=== PATIENT | female | born 1975 | race Caucasian/White ===

== ENCOUNTER 2017-06-30 16:30 | Inpatient (IN) | payer MEDICAID, SELFPAY ==
[2017-06-30 16:39] VITALS: BMI 29.0
[2017-06-30] MEDS: Betamethasone/Betamethasone 30 MG/5 ML Vial 12 MG IM (17:30)
[2017-06-30] MEDS: Lactated Ringers 1,000 ML 50 ML IV ×2 (18:15→22:08)
[2017-06-30] MEDS: Oxytocin 30 units/NS 500 ml 30 UNITS/500 ML IV.SOLN IV (18:30)
[2017-06-30 18:40] LABS: Hematocrit 35.1 % (37-47); Hemoglobin 11.9 g/dl (12.0-15.0); Mean Corp Hgb Conc 33.9 g/gl (32-36); Mean Corpuscular Hgb 31.5 pg (27.0-32.0); Mean Corpuscular Volume 92.9 fL (81-99); Mean Platelet Vol. 8.7 fl (6.2-12.0); Platelet Count 169 K/mm3 (150-450); RBC Distribution Width CV 13.7 % (11.6-14.6); RBC Distribution Width SD 45.1 fl (35.1-43.9); Red Blood Count 3.78 M/mm3 (4.2-5.4); White Blood Count 9.5 K/mm3 (4.4-11.0)
[2017-06-30 18:50] LABS: Scan Indicated on CBC? Y/N NO
[2017-06-30 18:55] LABS: Amphetamine Urine VISTA NEGATIVE (<1000 ng/mL); Barbiturate Urine VISTA NEGATIVE (< 200 ng/mL); Benzodiazepine Urine VISTA NEGATIVE (< 200 ng/mL); Cocaine Urine VISTA NEGATIVE (< 300 ng/mL); Ecstacy Urine VISTA NEGATIVE (< 500 ng/mL); Methadone Urine VISTA NEGATIVE (< 300 ng/mL); PCP Urine VISTA NEGATIVE (< 25 ng/mL); THC Urine VISTA POSITIVE (< 50 ng/mL); Vista UDS pH Range 6
[2017-06-30 18:56] LABS: Group B Strep DNA By PCR Negative (Negative); Internal Control PASS; Probe Check PASS; Specimen Processing Control PASS
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
--- NOTE | 2017-06-30 23:02 | PCM.PN.BLA ---
Progress Note S: Report received from Maggie Roland MD about this patient. At sign-off patient was noted to be 4-5cm/90%/-2 with a Category II tracing categorized by minimal to moderate variability and occasional moderate variable decels. Rare prolonged decelerations have also bee noted through the course of her labor. Due to patient's HepC positive status, FSE placement contraindicated. Patient has recently received epidural and is comfortable following its placement. O: VSS, Afebrile FHT baseline 125, minimal to moderate variability, few accels, frequent early decels and prolonged decel with chanel to 70x x 4 minutes with spontaneous recovery with position change, 10 L O2 by facemask and IV LR fluid bolus Ctx q 2-5 minutes, palpate moderately strong SVE = 6/90/-2 by this provider's exam A: 41 y/o @ 36+ weeks IOL for known Trisomy 21 for non-reactive NST (BPP 6/10) P: 1) Dr. Chavez OB back-up notified of patient status and heart rate tracing, will continue to monitor at this time expectantly since there is spontaneous recovery of decels 2) Expectant management 3) Anticipate Mallory Ruiz CNM
[2017-06-30] MEDS: 0.9% Saline Lock 10 ML Syringe IV ×2 (23:14→23:15)
--- NOTE | 2017-07-01 | PLAC_PTH ---
PATIENT: TATA NEVAREZ LOC: [facility] U#:[id number] AGE/SX: 41/F ROOM: WP014 RE06/30/[address]: Dr. Alexandra Brandt, MDDOB: 1975 BED: 1 DIS: 07/02/2017 SPEC #: [id number] RECD: 07/01/17 14:49 STATUS: VARUN EVE #: [id number] JHOANA: 07/01/17 00:[address]: Alexandra Brandt DEPT: SURGICAL PATHOLOGY RECD BY: Jared Varela ENTERED: 07/03/17 09:21 SP TYPE: PLACENTA OTHR DR: Dr. Griselda Valdes MD Tissues: Placenta, NOS Procedures: Surgery Specimen Level V HEADER OPERATION: Vaginal delivery PRE-OP DIAGNOSIS: Known trisomy 21 baby, short cord TISSUE SUBMITTED: Placenta MICROSCOPIC DIAGNOSIS Gonzalez placenta (445 gm): Short umbilical cord ? trivascular with no inflammation. Placental membranes ? focal pigmented macrophages. Placental disc ? hypovascular villi and mildly increased intraparenchymal fibrin plaques. AM:jose 07/05/17 COMMENT Portions of the placenta are submitted for cytogenetic studies. MICROSCOPIC DESCRIPTION Slides are reviewed. GROSS DESCRIPTION SPECIMEN: PLACENTA / CLINICAL INFORMATION: A. Weight: 2.699 kg B. Gestational Age: 36 weeks C. Sex: Female PLACENTAL WEIGHT (POST FIXATION): 445 gm PLACENTAL DIMENSIONS: 18 x 17 x 3 cm PLACENTAL SHAPE: Usual ovoid PLACENTAL WEIGHT FOR GESTATIONAL AGE: Within 10-99th percentile MEMBRANES - Present A. Insertion: Marginal B. Site of rupture from edge: 2 cm from edge of placental disc C. Color of membrane: Muñoz-santos D. Abnormalities: None UMBILICAL CORD - Present A. Color: Muñoz-santos B. Insertion: Eccentric C. Length: 22 cm D. Diameter: 1 cm E. Number of vessels: Three F. Abnormalities: None PLACENTAL DISC - Present A. Color of surface: Muñoz-santos B. surface abnormalities: None C. Maternal cotyledons: Intact with minimal tears D. Attached retro placental clot: No clot E. Cut surface: Dark red and spongy F. Lesions: None G. Separate clot: Absent SECTIONS SUBMITTED: 1. Membrane roll and umbilical cord ( end notched) 2. Placental disc, and maternal surfaces 3. Placental disc, and maternal surfaces 4. Placental disc, and maternal surfaces AM:jose 07/04/17 TC:5 CPT: 83747
[2017-07-01] MEDS: Lactated Ringers 1,000 ML 50 ML IV (00:21)
[2017-07-01] MEDS: Ondansetron 4 MG/2 ML Vial IV (00:38)
[2017-07-01] MEDS: Oxytocin 30 units/NS 500 ml 30 UNITS/500 ML IV.SOLN 334 UNITS IV (01:25)
--- NOTE | 2017-07-01 01:48 | PCM.OB.VAG ---
Vaginal Delivery Maternal Presentation: Medically Indicated Induction Method of Induction: Pitocin - Pitocin discontinued during labor though for repetative prolonged decels, Amniotomy Medical Reason for Induction: Gestational Hypertension, - - Non-reassuring NST, BPP = 6/10. Known Trisomy 21 baby. Amniotic Membrane Rupture Type: Artificial Amniotic Fluid Description: Clear, Lightly stained meconium Final UZIEL: 07/27/17 Final UZIEL Source: US <20 weeks Gestational age: 36 Weeks and 2 Days [place] doctor who attended delivery (if requested by OB): Giselle Ortiz Date of Procedure: 07/01/17 Pre-Operative Diagnosis: IOL @ 36.1 wks for Non-reactive NST, Category II FHT, BPP = 6/10, Known T21 Post-Operative Diagnosis: @ 36.2 wks Surgery/ Procedure Performed: Spontaneous Vaginal Delivery Anesthesiologist: Rama Dye Type of Anesthesia: Epidural Description of Procedure: Patient found to be C/C/+1 station with urge to push. Due to Category II FHT during much of labor and known Trisomy 21 baby, Owner Professional Engineer television news reporter and SCN nurse present at delivery. Patient pushed well with urge, decels to 80s noted during the pushing phase. Patient pushed easily to crown and then delivered viable girl baby over intact perineum at 0118. Infant with spontaneous cry and respirations, Apgars 8 and 9. Mouth and nose bulb suctioned and infant dried and stimulated. Umbilical clamped and cut by one of patient's support people, then placenta delivered spontaneously via Lujan mechanism after 3rd stage pitocin per protocol was started. Placenta intact with 3VC; cord short. Due to known Trisomy and short cord, placenta sent to pathology for evaluation. EBL = 150cc. Upon inspection of vaginal vault, no lacerations noted. No repair indicated. Sponge count correct. Vagina sweep negative. Poxh-gh-kiub initiated. Bonding initiated. Mallory Ruiz CNM Presentation: Vertex, YASSINE Placental Delivery Description: Spontaneous Placenta Disposition: Routine to Lab Cord Vessel Description: 3 Vessels Cord Entanglement: None Drain: Du to straight drain Estimated Blood Loss: 150 Infant A gender: Female (1 minute): 8 (5 minute): 9 Episiotomy Description: None Laceration: None Medications given after delivery: IV Pitocin Complications: None
[2017-07-01] MEDS: Oxytocin 30 units/NS 500 ml 30 UNITS/500 ML IV.SOLN 167 UNITS IV (02:05)
[2017-07-01] MEDS: 0.9% Saline Lock 10 ML Syringe IV (03:04)
[2017-07-01] MEDS: Ibuprofen 600 MG Tablet PO ×3 (03:16→16:03)
[2017-07-01 04:12] VITALS: BP 110/57; PULSE 73; RESP 18; TEMP 37
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
--- NOTE | 2017-07-01 07:26 | PCM.PN.BLA ---
Progress Note Present at bedside talking with patient. After reviewing patient's records, positive tox screen for cannabinoids noted. Patient admits to use of marijuana a week ago. Discussed with patient risk of while using marijuana. Discussed that in contraindicated if patient is using marijuana due to risk of brain development. Patient spoke with [facility] social media content manager yesterday re: housing concerns. Patient is in need of stable housing upon getting discharge from hospital. [facility] Social Work note printed out for [facility] nursing and social work staff. Patient bonding well with patient and is pumping colostrum at this time. Mallory Ruiz CNM
--- NOTE | 2017-07-01 07:32 | PN_ITS ---
Progress Note Present at bedside talking with patient. After reviewing patient's records, positive tox screen for cannabinoids noted. Patient admits to use of marijuana a week ago. Discussed with patient risk of while using marijuana. Discussed that in contraindicated if patient is using marijuana due to risk of brain development. Patient spoke with [facility] social services aide yesterday re: housing concerns. Patient is in need of stable housing upon getting discharge from hospital. [facility] Social Work note printed out for [facility] nursing and social work staff. Patient bonding well with patient and is pumping colostrum at this time. Mallory Ruiz CNM
[2017-07-01 08:00] VITALS: BP 109/65; PULSE 66; RESP 18; TEMP 36.6; O2SAT 96
[2017-07-01 12:00] VITALS: BP 126/70; PULSE 72; RESP 16; TEMP 36.4; O2SAT 98
[2017-07-01 16:00] VITALS: BP 133/84; PULSE 63; RESP 18; TEMP 37; O2SAT 99
[2017-07-01 19:35] VITALS: BP 127/65; PULSE 60; RESP 16; TEMP 36.5; O2SAT 98
[2017-07-02] VITALS: BP 133/76; PULSE 86; RESP 18; TEMP 36.6; O2SAT 99
[2017-07-02 02:45] VITALS: BP 128/78; PULSE 78; RESP 18; TEMP 36.6
[2017-07-02 03:34] LABS: Hematocrit 35.8 % (37-47); Mean Corp Hgb Conc 33.5 g/gl (32-36); Mean Corpuscular Hgb 31.7 pg (27.0-32.0); Mean Corpuscular Volume 94.5 fL (81-99); Mean Platelet Vol. 8.8 fl (6.2-12.0); Platelet Count 157 K/mm3 (150-450); RBC Distribution Width CV 13.9 % (11.6-14.6); RBC Distribution Width SD 47.3 fl (35.1-43.9); Red Blood Count 3.79 M/mm3 (4.2-5.4)
[2017-07-02 03:35] LABS: Scan Indicated on CBC? Y/N NO
[2017-07-02] MEDS: Ibuprofen 600 MG Tablet PO (05:54)
--- NOTE | 2017-07-02 06:59 | DCINST_ITS ---
Discharge Diet: No Restrictions Discharge Activity: Return to Normal Activity, May not drive while taking narcotic pain medications., May Shower May resume sexual activity in: 4-6 weeks Additional Activity Instructions:: Nothing in the vagina for 4-6 weeks. You may return to work/school in 6 weeks. Call your doctor if your incision/area has: Continuous Slow Oozing, Sudden Increased Bleeding, Increased Pain/ Swelling, Increased Redness, Foul Smelling Discharge Call your doctor if you observe: Fever of 101 or Higher, Inability to urinate, Inability to have a bowel movement, Using more than one pad per hour, Uncontrolled pain Additional Instructions: If you experience any of the following, contact your healthcare provider. * Bleeding that soaks a pad every hour for 2 hours * Fever 100.4 or higher * Unrelieved incision or abdominal pain * Swelling, redness, discharge or bleeding from your incision or episiotomy site * Your incision begins to separate * Problems urinating (including inability to urinate or burning while urinating) . * Visual changes * Severe headache * Flu-like symptoms * Pain or redness in one of both of your breasts * Pain, warmth, tenderness or swelling in your legs, especially the calf area * Frequent nausea and vomiting * Symptoms of depression or anxiety If you experience any of the following, call 911 or go to the nearest Emergency Room. * Chest pain * Problems breathing * Seizure activity * Partial or complete paralysis of a body part, slurred speech, weakness or drooping of the face, or a sudden inability to walk or hold your balance Allergies/Adverse Reactions: Allergies No Known Allergies Allergy (Verified 06/30/17 17:36) Medications to take at Discharge Pnv95/Ferrous Fumarate/FA [ Formula] 1 each PO DAILY 01/09/17 Orders to be completed after discharge: Electric breast pump Location: None Selected When: Call to make an appointment with your doctor in 6 weeks. If you had elevated Blood Pressure or 4th degree laceration you will need to be seen in 2 weeks. Primary Care Physician: Griselda Valdes MD [Primary Care Provider] -
--- NOTE | 2017-07-02 07:01 | PCM.PN.BLA ---
Progress Note S: Page received from nursing staff overnight. [place] is being transferred to [facility] for evaluation of cardiac murmur following failed NICHD heart screening. Patient has not been seen yet by social work here in hospital, discussed with nursing staff and this consult can be done at [place]. Patient desires discharge to home NESTOR so she can be with her baby. Patient denies any symptoms or concerns. Reports that she is having no issues with urination or ambulation. O: VSS, Afebrile Nipples with few ecchymotic olinda, a few fine small cracks noted. No active bleeding noted. Abdomen NT x 4 quadrants, FF midline @ 2FB below umbilicus No edema in LE, negative calf tenderness to palpation Scant rubra lochia, intact perineum A: 41 y/o G10, now P8; PPD #1 following of Down Syndrome Child, Hx of Substance Use Disorder, Normal Course P: 1) Discharge patient to home 2) Breastpump order and APNO prescription written so patient can continue /pump breastmilk 3) RTC at [facility] office at 4-5 weeks PP for pre-op visit for tubal ligation. 4) Anticipate social work consult will be done at [facility] Mallory Ruiz CNM
--- NOTE | 2017-07-02 07:21 | PN_ITS ---
Progress Note S: Page received from nursing staff overnight. [place] is being transferred to [facility] for evaluation of cardiac murmur following failed NICHD heart screening. Patient has not been seen yet by social work here in hospital, discussed with nursing staff and this consult can be done at [place]. Patient desires discharge to home NESTOR so she can be with her baby. Patient denies any symptoms or concerns. Reports that she is having no issues with urination or ambulation. O: VSS, Afebrile Nipples with few ecchymotic olinda, a few fine small cracks noted. No active bleeding noted. Abdomen NT x 4 quadrants, FF midline @ 2FB below umbilicus No edema in LE, negative calf tenderness to palpation Scant rubra lochia, intact perineum A: 41 y/o G10, now P8; PPD #1 following of Down Syndrome Child, Hx of Substance Use Disorder, Normal Course P: 1) Discharge patient to home 2) Breastpump order and APNO prescription written so patient can continue /pump breastmilk 3) RTC at [facility] office at 4-5 weeks PP for pre-op visit for tubal ligation. 4) Anticipate social work consult will be done at [facility] Mallory Ruiz CNM
[2017-07-02 08:00] VITALS: BP 141/83; PULSE 56; RESP 18; TEMP 36.9; O2SAT 99
[2017-07-06 12:21] LABS: Pathology Specimen OB SEE PATHOLOGY REPORT
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
== END 2017-07-02 08:40 | disposition home or self-care (01) | DRG 372 ==
PROVIDERS: Advanced Practice Midwife; Obstetrics & Gynecology; Admitting Provider Obstetrics & Gynecology; Family Provider Internal Medicine; PCP Internal Medicine; Visit Provider Obstetrics & Gynecology
DX: O40.3XX0 Polyhydramnios, third trimester, not applicable or unspecified (principal); O13.4 Gestational [pregnancy-induced] hypertension without significant proteinuria, complicating childbirth; O60.14X0 Preterm labor third trimester with preterm delivery third trimester, not applicable or unspecified; B19.20 Unspecified viral hepatitis C without hepatic coma; O99.324 Drug use complicating childbirth; O98.42 Viral hepatitis complicating childbirth; F12.90 Cannabis use, unspecified, uncomplicated; O76 Abnormality in fetal heart rate and rhythm complicating labor and delivery; O69.3XX0 Labor and delivery complicated by short cord, not applicable or unspecified; O99.334 Smoking (tobacco) complicating childbirth; Z3A.36 36 weeks gestation of pregnancy; Z37.0 Single live birth; O09.523 Supervision of elderly multigravida, third trimester; O92.13 Cracked nipple associated with lactation
CPT/HCPCS: 59025; 59050; 80307; 85027; 86850; 86900; 87081; 87653; 88307; 99218; J7120; A4216; G0378; J0702; J2405

== ENCOUNTER 2018-05-06 12:21 | Emergency (ER) | payer MEDICAID, SELFPAY ==
[2018-05-06 12:23] VITALS: BP 164/114; PULSE 74; PULSE 78; RESP 16; TEMP 36.6; O2SAT 96; BMI 24.2
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
[2018-05-06] MEDS: Diphth,Pertuss(Acell),Tet Vac 0.5 ML Vial IM (13:15)
[2018-05-06] MEDS: Ibuprofen 600 MG Tablet PO (13:16)
--- OUTSIDE RECORDS SUMMARY | 2018-08-08 13:27 | XMS RPT_ITS ---
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 treatment for hepatitis C now that has had her daughter. Postponed seeking treatment after became . PAST MEDICAL HISTORY Diagnosis Date - Allergic rhinitis, cause unspecified 12/15/2005 - Diarrhea - Generalized anxiety disorder Anxiety, Generalized - H/O miscarriage, currently 4 Miscarriages - Hemorrhage of gastrointestinal tract, unspecified - Hemorrhage of rectum and anus - Hepatitis C - Hepatitis C virus infection 10/16/2015 - History of gestational hypertension 01/02/2017 - History of maternal fourth degree perineal laceration, currently 01/02/2017 - Migraine, unspecified, with intractable migraine, so stated, without mention of status migrainosus Migraine - Nondependent alcohol abuse lives at [facility] - Other, mixed, or unspecified nondependent drug abuse lives at [facility] - PMH - PAST MEDICAL HISTORY OF heart mumur - Ulcerative (chronic) proctitis (HCC) Current Outpatient Prescriptions: fexofenadine (ELY) 180 mg tablet TAKE 1 TABLET BY MOUTH EVERY DAY BISMUTH SUBSALICYLATE (PEPTO-BISMOL ORAL) Take by mouth. Loperamide HCl (IMODIUM) 2 mg tab Take 1 tablet by mouth as needed. No current facility-administered medications for this visit. OBJECTIVE: BP 118/80 (BP Site: Right Arm, BP Position: Sitting, BP Cuff Size: Regular Adult) Pulse 68 Resp 12 Wt 71.7 kg (158 lb) BMI 25.50 kg/m? Patient is alert, oriented times 3, no apparent distress, affect is bright, reactive. Skin: nonicteric. Heart: Regular rate, rhythm, no murmurs, gallops, rubs. Lungs: Clear to auscultation, bilaterally, breathing non labored. Ext: No cyanosis, clubbing, or edema. Component Latest Ref Rng AND Units 01/09/2017 HCV RNA by PCR IU/mL 1,468,422 (A) ASSESSMENT AND PLAN: Encounter Diagnosis ICD-10-CM 1. Attention deficit hyperactivity disorder (ADHD), combined type F90.2 dextroamphetamine-amphetamine (ADDERALL) 5 mg tablet 2. Chronic hepatitis C without hepatic coma (HCC) B18.2 HCG QUAL BLD TOX SCREEN ROUT UR PROTHROMBIN TIME/PT HEPATITIS C GENOTYPE HEPATIC FUNCTION PNL GFR ESTIMATED CBC HCV QUANT RNA BY PCR Above issues addressed with patient. Patient involved in shared decision making for management of medical issues. History and medications reviewed. Epic updated as needed Refills taken care of and meds adjusted as indicated after reviewed history, exam and labs. Health Maintenance reviewed. Updated record and/or ordered tests as recorded. Encouraged on efforts at healthy diet and regular exercise and adequate sleep. Asked GI/Liseth Minor about possibility of managing here in [place]. Can get labs as recommended above then decide about treatment options. Will see if ADHD med approved by insurance and if helps with ADHD and anxiety. Adjust dose as indicated. Further evaluation and treatment as indicated. Emotional support given. Overall handling stressors well with having special needs daughter. The majority of the visit was spent counseling and/or coordinating care for the patient. Xlki-ie-ntue time was at least 25 minutes. Franco Valdes MD CNOV Observed: 02/14/2018 Status: COMPLETED Source: [place] 4:00 PM [facility] REPOSITORY Office Visit (INTMWS) TATA NEVAREZ ([id number]) 1975 F Date Time Provider Department 02/14/18 4:00 PM FRANCO VALDES INTMWS During your visit today, we recorded the following information about you: Pulse Respiration Blood pressure Weight 68/minute 12/minute 118/80 71.7 kg Franco Valdes MD 02/20/2018 5:24 PM Signed Patient presents with: discuss medical marijuana and hep c SUBJECTIVE: Tata Nevarez is a 42 year old year old lady here today for follow up appointment for review of medical conditions. Baby with Down's syndrome--daughter doing well. Issues with anxiety and panic attacks. Was treated for ADHD in the past. Less anxious when was being treated for ADHD. Would be willing to try treating ADHD again and see if that helped. Wants to seek treatment for hepatitis C now that has had her daughter. Postponed seeking treatment after became . PAST MEDICAL HISTORY Diagnosis Date - Allergic rhinitis, cause unspecified 12/15/2005 - Diarrhea - Generalized anxiety disorder Anxiety, Generalized - H/O miscarriage, currently 4 Miscarriages - Hemorrhage of gastrointestinal tract, unspecified - Hemorrhage of rectum and anus - Hepatitis C - Hepatitis C virus infection 10/16/2015 - History of gestational hypertension 01/02/2017 - History of maternal fourth degree perineal laceration, currently 01/02/2017 - Migraine, unspecified, with intractable migraine, so stated, without mention of status migrainosus Migraine - Nondependent alcohol abuse lives at [facility] - Other, mixed, or unspecified nondependent drug abuse lives at [facility] - PMH - PAST MEDICAL HISTORY OF heart mumur - Ulcerative (chronic) proctitis (HCC) Current Outpatient Prescriptions: fexofenadine (ELY) 180 mg tablet TAKE 1 TABLET BY MOUTH EVERY DAY BISMUTH SUBSALICYLATE (PEPTO-BISMOL ORAL) Take by mouth. Loperamide HCl (IMODIUM) 2 mg tab Take 1 tablet by mouth as needed. No current facility-administered medications for this visit. OBJECTIVE: BP 118/80 (BP Site: Right Arm, BP Position: Sitting, BP Cuff Size: Regular Adult) Pulse 68 Resp 12 Wt 71.7 kg (158 lb) BMI 25.50 kg/m? Patient is alert, oriented times 3, no apparent distress, affect is bright, reactive. Skin: nonicteric. Heart: Regular rate, rhythm, no murmurs, gallops, rubs. Lungs: Clear to auscultation, bilaterally, breathing non labored. Ext: No cyanosis, clubbing, or edema. Component Latest Ref Rng AND Units 01/09/2017 HCV RNA by PCR IU/mL 1,468,422 (A) ASSESSMENT AND PLAN: Encounter Diagnosis ICD-10-CM 1. Attention deficit hyperactivity disorder (ADHD), combined type F90.2 dextroamphetamine-amphetamine (ADDERALL) 5 mg tablet 2. Chronic hepatitis C without hepatic coma (HCC) B18.2 HCG QUAL BLD TOX SCREEN ROUT UR PROTHROMBIN TIME/PT HEPATITIS C GENOTYPE HEPATIC FUNCTION PNL GFR ESTIMATED CBC HCV QUANT RNA BY PCR Above issues addressed with patient. Patient involved in shared decision making for management of medical issues. History and medications reviewed. Epic updated as needed Refills taken care of and meds adjusted as indicated after reviewed history, exam and labs. Health Maintenance reviewed. Updated record and/or ordered tests as recorded. Encouraged on efforts at healthy diet and regular exercise and adequate sleep. Asked GI/Liseth Minor about possibility of managing here in [place]. Can get labs as recommended above then decide about treatment options. Will see if ADHD med approved by insurance and if helps with ADHD and anxiety. Adjust dose as indicated. Further evaluation and treatment as indicated. Emotional support given. Overall handling stressors well with having special needs daughter. The majority of the visit was spent counseling and/or coordinating care for the patient. Tdpm-hs-kugo time was at least 25 minutes. Franco Valdes MD Referring Provider: SELF [[id number]] Allergies As of Date: 02/14/2018 Noted Allergy Reaction ZOLOFT (SERTRALINE) 02/14/2018 1 - Mental Status Change Comments: felt high like on cocaine; could not tolerate Date Reviewed: 02/14/2018 Reviewed by: Blas Webber - Fully Assessed Reason for Visit: discuss medical marijuana and hep c [Other] Primary Visit Diagnosis:Attention deficit hyperactivity disorder (ADHD), combined type [F90.2] Other Visit Diagnosis:Chronic hepatitis C without hepatic coma (HCC) [B18.2] Order(s):dextroamphetamine-amphetamine (ADDERALL) 5 mg tabletTake 1 tablet by mouth twice daily for 30 days.Disp: 60 tabletRfl: 0 HCG QUAL BLD [SQHCG] Order #: [id number] FUTURE TOX SCREEN ROUT UR [SQUTOX2] Order #: [id number] FUTURE PROTHROMBIN TIME/PT [SQPT] Order #: [id number] FUTURE HEPATITIS C GENOTYPE [SQHEPGEN] Order #: [id number] FUTURE HEPATIC FUNCTION PNL [SQHFP] Order #: [id number] FUTURE GFR ESTIMATED [SQGFR1] Order #: [id number] FUTURE CBC [SQCBC] Order #: [id number] FUTURE HCV QUANT RNA BY PCR [SQHCQPCR] Order #: [id number] FUTURE Prescriptions as of 02/14/2018 Sig: FEXOFENADINE 180 MG TABLET TAKE 1 TABLET BY MOUTH EVERY * PEPTO-BISMOL ORAL Take by mouth. LOPERAMIDE 2 MG TABLET Take 1 tablet by mouth as nee* DEXTROAMPHETAMINE-AMPHETAMINE* Take 1 tablet by mouth twice * Medication notes this encounter HYDROXYZINE PAMOATE 50 MG CAPSULE >> Blas Webber 02/14/2018 4:19 PM >> BLAS WEBBER MonFeb 14, 2018 4:19 PM Not taking FAMOTIDINE 10 MG TABLET >> Blas Webber 02/14/2018 4:19 PM >> BLAS WEBBER MonFeb 14, 2018 4:19 PM Not taking Problem List As Of Date 02/14/2018 Noted Resolved Opioid abuse, in remission [F11.11] INVALID FOR*08/11/2017 More... Rash and other nonspecific skin eruption [R21] INVALID FOR*01/02/2017 More... 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] INVALID FOR* Ulcerative (chronic) proctitis (HCC) [K51.20] INVALID FOR*01/02/2017 Hemorrhage of gastrointestinal tract, unspecifi*INVALID FOR*01/02/2017 DIARRHEA NOS [R19.7] INVALID FOR* Hypertrophy of breast [N62] INVALID FOR*01/02/2017 Hepatitis C virus infection [B19.20] INVALID FOR*08/11/2017 Drug addiction (HCC) [F19.20] INVALID FOR*01/02/2017 Elderly multigravida in first trimester [O09.52*INVALID FOR* History of maternal fourth degree perineal lace*INVALID FOR*08/11/2017 History of gestational hypertension [Z87.59] INVALID FOR*08/11/2017 Down syndrome of fetus in current [O3*INVALID FOR*08/11/2017 More... Chronic hepatitis C affecting , antepa*INVALID FOR* BV (bacterial vaginosis) [N76.0, B96.89] INVALID FOR*08/11/2017 More... Polyhydramnios in third trimester [O40.3XX0] INVALID FOR*08/11/2017 More... Encounter for sterilization [Z30.2] INVALID FOR* More... Attention deficit hyperactivity disorder (ADHD)*INVALID FOR* Prescriptions ordered this encounter Disp Refills Start End DEXTROAMPHETAMINE-AMPHETAMINE 5 MG T* 60 t* 0 02/14/2018 03/16/2018 Class: Print RX Route: ORAL Sig: Take 1 tablet by mouth twice daily for 30 days. Medications Discontinued During This Encounter cephALEXin (KEFLEX) 500 mg capsule 28 c* 0 08/11/2017 02/14/2018 Route: ORAL Sig: Take 1 capsule by mouth four times daily. Disc: Course of therapy completed famotidine (PEPCID) 10 mg tablet 30 t* 2 01/02/2017 02/14/2018 Route: ORAL Sig: Take 1 tablet by mouth twice daily. Disc: Reason for discontinue is not on file. ondansetron (ZOFRAN) 4 mg tablet 112 * 1 01/02/2017 02/14/2018 Route: ORAL Sig: Take 1 tablet by mouth every 8 hours as needed for Nausea/Vomiting. Disc: Reason for discontinue is not on file. promethazine (PHENERGAN) 25 mg tablet 40 t* 0 01/09/2017 02/14/2018 Cmt: Med-syn patient. If too soon, we will put new RX on hold for next cycle. Sig: TAKE 1 TABLET EVERY 6 HOURS NEEDED for nausea/vomiting Disc: Reason for discontinue is not on file. hydrOXYzine pamoate (VISTARIL) 50 mg* 30 c* 1 04/26/2017 02/14/2018 Route: ORAL Sig: Take 1 capsule by mouth at bedtime as needed for Anxiety. Disc: Reason for discontinue is not on file. metroNIDAZOLE (METROGEL) 0.75 % Vagi* 1 Tu* 0 06/01/2017 02/14/2018 Route: VAGINAL Sig: Use 1 Applicatorful vaginally once each week. Disc: Reason for discontinue is not on file. phenazopyridine (PYRIDIUM, GERIDIUM)* 6 ta* 0 08/11/2017 02/14/2018 Route: ORAL Sig: Take 1 tablet by mouth three times daily as needed. Disc: Reason for discontinue is not on file. Lwywlhhu-Lp-Zbm-Fe-FA (PREN* 02/14/2018 Class: Historical Med Route: ORAL Sig: Take 1 tablet by mouth once daily. Disc: Reason for discontinue is not on file. clotrimazole-betamethasone (LOTRISON* 15 g 0 09/21/2017 02/14/2018 Route: TOPICAL Sig: Apply 1 application to affected area twice daily. Disc: Reason for discontinue is not on file. Disposition: Return for 3 to 4 weeks follow up. Follow-up and Disposition History Recorded Encounter Status:Closed by FRANCO VALDES MD on 02/20/18 CNOV Observed: 10/10/2017 Status: COMPLETED Source: [place] 3:00 PM [facility] REPOSITORY Office Visit (INTMWS) TATA NEVAREZ ([id number]) 1975 F Date Time Provider Department 10/10/17 3:00 PM ARLENE CLAY (POSTULANT) INTMWS During your visit today, we recorded the following information about you: Pulse Respiration Blood pressure Weight 60/minute 16/minute 110/64 71.2 kg Arlene Clay APRN.CNS 10/10/2017 3:35 PM Signed OUTPATIENT VISIT DATE October 10, 2017 OUTPATIENT VISIT TYPE ESTABLISHED PRIMARY CARE PHYSICIAN: Franco Valdes MD CHIEF COMPLAINT: Patient presents with: Hepatitis History of Present Illness: Tata Nevarez is a 41 year old female who was last seen 12/2016. She has been seen in the past for ACTIVE PROBLEM LIST Allergic Rhinitis, Cause Unspecified Backache, Unspecified Adjustment Disorder With Mixed Anxiety and Depressed Mood Diarrhea Elderly Multigravida in First Trimester Chronic Hepatitis C Affecting , Antepartum (Hcc) Encounter for Sterilization DTAP,TDAP,TD(1 - Tdap) due on 10/21/1995 ONE PNEUMOVAX PRIOR TO AGE 66 due on 10/21/1995 MAMMOGRAM due on 2016 HPI excerpted from last visit: Presents today for follow- up. Recently , seen in COMM[facility]ITY NURSE earlier this month. Advised follow- up with computer systems information director. She has appointment upcoming in February. Currently off most of her medications. She reports an episode of vaginal bleeding for which she was seen in the emergency department. She reports this is resolving. Previously followed by Dr. Finch, infectious disease for hepatitis C. Presents today for follow up. She had of child 07/2017, has followed with COMMUNITY NURSE. She does feel tired, she is working, raising children on her own right now, is incarcerated. She would like to follow up with infectious disease and gastroenterology regarding hepatitis C treatment. She is in need of referrals. No recent hospital or ED visits. No new medical problems or medications. Able to obtain medications. No problems with taking medications or note side effects. PAST MEDICAL HISTORY Diagnosis Date - Allergic rhinitis, cause unspecified 12/15/2005 - Diarrhea - Generalized anxiety disorder Anxiety, Generalized - H/O miscarriage, currently 4 Miscarriages - Hemorrhage of gastrointestinal tract, unspecified - Hemorrhage of rectum and anus - Hepatitis C - Hepatitis C virus infection 10/16/2015 - History of gestational hypertension 01/02/2017 - History of maternal fourth degree perineal laceration, currently 01/02/2017 - Migraine, unspecified, with intractable migraine, so stated, without mention of status migrainosus Migraine - Nondependent alcohol abuse lives at [facility] - Other, mixed, or unspecified nondependent drug abuse lives at [facility] - PMH - PAST MEDICAL HISTORY OF heart mumur - Ulcerative (chronic) proctitis (HCC) PAST SURGICAL HISTORY Procedure Laterality Date - COLONOSCOPY W/BX 11/06/07 - INSERT INTRAUTERINE DEVICE 05/25/07 Mirena - REDUCTION OF LARGE BREAST Breast reduction - REMOVAL OF TONSILS,<12 Y/O age 16 Tonsillectomy FAMILY HISTORY Problem Relation Age of Onset - None Mother - Heart Father [place] age 43, elevated cholesterol - Cancer Maternal Grandmother ovarian cancer - Cancer Maternal Grandfather - Coronary Artery Disease Paternal Grandmother - Diabetes Paternal Grandmother - Cancer Paternal Grandfather Lung - None Sister Social History Substance Use Topics - Smoking status: Current Some Day Smoker Years: 14.00 Types: Cigarettes - Smokeless tobacco: Never Used Comment: 2 cigarettes daily - Alcohol use No ALLERGIES: ALLERGIES No Known Allergies MEDICATIONS clotrimazole-betamethasone (LOTRISONE) cream Apply 1 application to affected area twice daily. cephALEXin (KEFLEX) 500 mg capsule Take 1 capsule by mouth four times daily. phenazopyridine (PYRIDIUM, GERIDIUM) 100 mg tablet Take 1 tablet by mouth three times daily as needed. fexofenadine (ELY) 180 mg tablet TAKE 1 TABLET BY MOUTH EVERY DAY metroNIDAZOLE (METROGEL) 0.75 % Vaginal Gel Use 1 Applicatorful vaginally once each week. hydrOXYzine pamoate (VISTARIL) 50 mg capsule Take 1 capsule by mouth at bedtime as needed for Anxiety. promethazine (PHENERGAN) 25 mg tablet TAKE 1 TABLET EVERY 6 HOURS NEEDED for nausea/vomiting Hnwmnqeu-Ie-Dqv-Fe-FA ( VITAMIN) tab Take 1 tablet by mouth once daily. ondansetron (ZOFRAN) 4 mg tablet Take 1 tablet by mouth every 8 hours as needed for Nausea/Vomiting. famotidine (PEPCID) 10 mg tablet Take 1 tablet by mouth twice daily. BISMUTH SUBSALICYLATE (PEPTO-BISMOL ORAL) Take by mouth. Loperamide HCl (IMODIUM) 2 mg tab Take 1 tablet by mouth as needed. REVIEW OF SYSTEMS: GENERAL: Negative for: Weight loss , Fever or Chills, Weakness and Sleep difficulties. Physical Examination: BP 110/64 Pulse 60 Resp 16 Wt 157 lb (71.2kg) Extended Vitals not filed for this encounter. General appearance: Well appearing, alert, in no acute distress, well-hydrated, well nourished. Skin: Skin color, texture, turgor normal, no suspicious rashes or lesions Neuro: Gait normal. Reflexes normal and symmetric. Sensation grossly intact. Reviewed chart, outside records, tests I personally interviewed, confirmed and edited the above information if obtained by others. TESTING: Glucose (mg/dL) Date Value 11/26/2015 115 Potassium (mmol/L) Date Value 11/26/2015 3.8 Sodium (mmol/L) Date Value 11/26/2015 140 Chloride (mmol/L) Date Value 11/26/2015 104 CO2 (mmol/L) Date Value 11/26/2015 21 Creatinine (mg/dL) Date Value 11/26/2015 0.72 BUN (mg/dL) Date Value 11/26/2015 14 Anion Gap (mmol/L) Date Value 11/26/2015 15 Calcium (mg/dL) Date Value 11/26/2015 9.1 Glucose (mg/dL) Date Value 11/26/2015 115 Potassium (mmol/L) Date Value 11/26/2015 3.8 Sodium (mmol/L) Date Value 11/26/2015 140 Chloride (mmol/L) Date Value 11/26/2015 104 CO2 (mmol/L) Date Value 11/26/2015 21 Creatinine (mg/dL) Date Value 11/26/2015 0.72 BUN (mg/dL) Date Value 11/26/2015 14 Anion Gap (mmol/L) Date Value 11/26/2015 15 Calcium (mg/dL) Date Value 11/26/2015 9.1 Protein, Total (g/dL) Date Value 11/26/2015 7.9 Albumin (g/dL) Date Value 11/26/2015 4.4 Bilirubin, Total (mg/dL) Date Value 11/26/2015 0.3 Alkaline Phosphatase (U/L) Date Value 11/26/2015 58 AST (U/L) Date Value 11/26/2015 32 ALT (U/L) Date Value 11/26/2015 29 Hemoglobin (g/dL) Date Value 04/26/2017 11.7 Hematocrit (%) Date Value 04/26/2017 35.0 WBC (k/uL) Date Value 04/26/2017 9.04 LDL Chol, [place] (mg/dL) Date Value 04/25/2008 73 No results found for: HBA1C Ejection Fraction: No results found IMPRESSION: Ms. Nevarez is a 41 year old woman presents for follow up visit. After my examination and review of data, I make the following recommendations. PLAN AND RECOMMENDATIONS: 1. Chronic hepatitis C affecting , antepartum (HCC) - ICD9: 647.63, 070.54, ICD10: O98.419, B18.2 Keep appointment with computer systems information director. Watch for signs of bleeding, yellowing of skin or jaundice, swelling in abdomen, change in level of consciousness, come in for check up immediately for any of these symptoms. Keep routine follow-up with nurse capacity planning manager/kayaking instructor. Call for any concerns for internal medicine. Follow-up for health maintenance with internal medicine once is over. - CONSULT TO INFECTIOUS DISEASES - CONSULT TO GASTROENTEROLOGY 2. Visit for screening mammogram - ICD9: V76.12, ICD10: Z12.31 (primary diagnosis) - MARCIE SCREENING - MARCIE SCREENING W [place] Advised to go to ER if develops chest pain, shortness of breath, or severe worsening of symptoms. Discussed risks, benefits, alternatives, and potential side effects of medications. Ms. Nevarez expressed understanding and agreed with the plan. Arlene Clay, POSTULANT Referring Provider: SELF [200] Allergies As of Date: 10/10/2017 (No Known Allergies) Date Reviewed: 10/10/2017 Reviewed by: Marga Thurston LPN - Fully Assessed Reason for Visit: Hepatitis [415] Primary Visit Diagnosis:Visit for screening mammogram [Z12.31] Other Visit Diagnosis:Chronic hepatitis C affecting , antepartum (HCC) [O98.419, B18.2] Order(s):MARCIE SCREENING [[id number]] Order #: [id number] FUTURE MARCIE SCREENING W [place]AH[place]A [[id number]] Order #: [id number] FUTURE CONSULT TO INFECTIOUS DISEASES [9016] Order #: [id number]: 1 CONSULT TO GASTROENTEROLOGY [9010] Order #: [id number]: 1 Prescriptions as of 10/10/2017 Sig: CLOTRIMAZOLE-BETAMETHASONE 1 * Apply 1 application to affect* CEPHALEXIN 500 MG CAPSULE Take 1 capsule by mouth four * PHENAZOPYRIDINE 100 MG TABLET Take 1 tablet by mouth three * FEXOFENADINE 180 MG TABLET TAKE 1 TABLET BY MOUTH EVERY * METRONIDAZOLE 0.75 % VAGINAL * Use 1 Applicatorful vaginally* HYDROXYZINE PAMOATE 50 MG CAP* Take 1 capsule by mouth at be* PROMETHAZINE 25 MG TABLET TAKE 1 TABLET EVERY 6 HOURS A* VITAMIN,CALCIUM,MINE* Take 1 tablet by mouth once d* ONDANSETRON HCL 4 MG TABLET Take 1 tablet by mouth every * FAMOTIDINE 10 MG TABLET Take 1 tablet by mouth twice * PEPTO-BISMOL ORAL Take by mouth. LOPERAMIDE 2 MG TABLET Take 1 tablet by mouth as nee* Problem List As Of Date 10/10/2017 Noted Resolved Opioid abuse, in remission [F11.11] INVALID FOR*08/11/2017 More... Rash and other nonspecific skin eruption [R21] INVALID FOR*01/02/2017 More... 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] INVALID FOR* Ulcerative (chronic) proctitis (HCC) [K51.20] INVALID FOR*01/02/2017 Hemorrhage of gastrointestinal tract, unspecifi*INVALID FOR*01/02/2017 DIARRHEA NOS [R19.7] INVALID FOR* Hypertrophy of breast [N62] INVALID FOR*01/02/2017 Hepatitis C virus infection [B19.20] INVALID FOR*08/11/2017 Drug addiction (HCC) [F19.20] INVALID FOR*01/02/2017 Elderly multigravida in first trimester [O09.52*INVALID FOR* History of maternal fourth degree perineal lace*INVALID FOR*08/11/2017 History of gestational hypertension [Z87.59] INVALID FOR*08/11/2017 Down syndrome of fetus in current [O3*INVALID FOR*08/11/2017 More... Chronic hepatitis C affecting , antepa*INVALID FOR* BV (bacterial vaginosis) [N76.0, B96.89] INVALID FOR*08/11/2017 More... Polyhydramnios in third trimester [O40.3XX0] INVALID FOR*08/11/2017 More... Encounter for sterilization [Z30.2] INVALID FOR* More... Encounter Status:Closed by ARLENE BENNETT on 10/10/17 PROGRESS Observed: 10/10/2017 Status: COMPLETED Source: [place] 8:40 AM [facility] REPOSITORY HNO ID: [id number] Author: Arlene (Nohemi) Obed Service: (none) Author Type: Nurse Specialist Type: Progress Notes Filed: 10/10/2017 3:35 PM Note Text: OUTPATIENT VISIT DATE October 10, 2017 OUTPATIENT VISIT TYPE ESTABLISHED PRIMARY CARE PHYSICIAN: Franco Valdes MD CHIEF COMPLAINT: Patient presents with: Hepatitis History of Present Illness: Tata Nevarez is a 41 year old female who was last seen 12/2016. She has been seen in the past for ACTIVE PROBLEM LIST Allergic Rhinitis, Cause Unspecified Backache, Unspecified Adjustment Disorder With Mixed Anxiety and Depressed Mood Diarrhea Elderly Multigravida in First Trimester Chronic Hepatitis C Affecting , Antepartum (Hcc) Encounter for Sterilization DTAP,TDAP,TD(1 - Tdap) due on 10/21/1995 ONE PNEUMOVAX PRIOR TO AGE 65 due on 10/21/1995 MAMMOGRAM due on 2016 HPI excerpted from last visit: Presents today for follow- up. Recently , seen in COMMUNITY NURSE earlier this month. Advised follow- up with computer systems information director. She has appointment upcoming in February. Currently off most of her medications. She reports an episode of vaginal bleeding for which she was seen in the emergency department. She reports this is resolving. Previously followed by Dr. Finch, infectious disease for hepatitis C. Presents today for follow up. She had of child 07/2017, has followed with COMMUNITY NURSE. She does feel tired, she is working, raising children on her own right now, is incarcerated. She would like to follow up with infectious disease and gastroenterology regarding hepatitis C treatment. She is in need of referrals. No recent hospital or ED visits. No new medical problems or medications. Able to obtain medications. No problems with taking medications or note side effects. PAST MEDICAL HISTORY Diagnosis Date - Allergic rhinitis, cause unspecified 12/15/2005 - Diarrhea - Generalized anxiety disorder Anxiety, Generalized - H/O miscarriage, currently 4 Miscarriages - Hemorrhage of gastrointestinal tract, unspecified - Hemorrhage of rectum and anus - Hepatitis C - Hepatitis C virus infection 10/16/2015 - History of gestational hypertension 01/02/2017 - History of maternal fourth degree perineal laceration, currently 01/02/2017 - Migraine, unspecified, with intractable migraine, so stated, without mention of status migrainosus Migraine - Nondependent alcohol abuse lives at [facility] - Other, mixed, or unspecified nondependent drug abuse lives at [facility] - PMH - PAST MEDICAL HISTORY OF heart mumur - Ulcerative (chronic) proctitis (HCC) PAST SURGICAL HISTORY Procedure Laterality Date - COLONOSCOPY W/BX 11/06/07 - INSERT INTRAUTERINE DEVICE 05/25/07 Mirena - REDUCTION OF LARGE BREAST Breast reduction - REMOVAL OF TONSILS,<12 Y/O age 16 Tonsillectomy FAMILY HISTORY Problem Relation Age of Onset - None Mother - Heart Father [place] age 43, elevated cholesterol - Cancer Maternal Grandmother ovarian cancer - Cancer Maternal Grandfather - Coronary Artery Disease Paternal Grandmother - Diabetes Paternal Grandmother - Cancer Paternal Grandfather Lung - None Sister Social History Substance Use Topics - Smoking status: Current Some Day Smoker Years: 14.00 Types: Cigarettes - Smokeless tobacco: Never Used Comment: 2 cigarettes daily - Alcohol use No ALLERGIES: ALLERGIES No Known Allergies MEDICATIONS clotrimazole-betamethasone (LOTRISONE) cream Apply 1 application to affected area twice daily. cephALEXin (KEFLEX) 500 mg capsule Take 1 capsule by mouth four times daily. phenazopyridine (PYRIDIUM, GERIDIUM) 100 mg tablet Take 1 tablet by mouth three times daily as needed. fexofenadine (ELY) 180 mg tablet TAKE 1 TABLET BY MOUTH EVERY DAY metroNIDAZOLE (METROGEL) 0.75 % Vaginal Gel Use 1 Applicatorful vaginally once each week. hydrOXYzine pamoate (VISTARIL) 50 mg capsule Take 1 capsule by mouth at bedtime as needed for Anxiety. promethazine (PHENERGAN) 25 mg tablet TAKE 1 TABLET EVERY 6 HOURS NEEDED for nausea/vomiting Ayxnolgj-Eo-Sbz-Fe-FA ( VITAMIN) tab Take 1 tablet by mouth once daily. ondansetron (ZOFRAN) 4 mg tablet Take 1 tablet by mouth every 8 hours as needed for Nausea/Vomiting. famotidine (PEPCID) 10 mg tablet Take 1 tablet by mouth twice daily. BISMUTH SUBSALICYLATE (PEPTO-BISMOL ORAL) Take by mouth. Loperamide HCl (IMODIUM) 2 mg tab Take 1 tablet by mouth as needed. REVIEW OF SYSTEMS: GENERAL: Negative for: Weight loss , Fever or Chills, Weakness and Sleep difficulties. Physical Examination: BP 110/64 Pulse 60 Resp 16 Wt 157 lb (71.2kg) Extended Vitals not filed for this encounter. General appearance: Well appearing, alert, in no acute distress, well-hydrated, well nourished. Skin: Skin color, texture, turgor normal, no suspicious rashes or lesions Neuro: Gait normal. Reflexes normal and symmetric. Sensation grossly intact. Reviewed chart, outside records, tests I personally interviewed, confirmed and edited the above information if obtained by others. TESTING: Glucose (mg/dL) Date Value 11/26/2015 115 Potassium (mmol/L) Date Value 11/26/2015 3.8 Sodium (mmol/L) Date Value 11/26/2015 140 Chloride (mmol/L) Date Value 11/26/2015 104 CO2 (mmol/L) Date Value 11/26/2015 21 Creatinine (mg/dL) Date Value 11/26/2015 0.72 BUN (mg/dL) Date Value 11/26/2015 14 Anion Gap (mmol/L) Date Value 11/26/2015 15 Calcium (mg/dL) Date Value 11/26/2015 9.1 Glucose (mg/dL) Date Value 11/26/2015 115 Potassium (mmol/L) Date Value 11/26/2015 3.8 Sodium (mmol/L) Date Value 11/26/2015 140 Chloride (mmol/L) Date Value 11/26/2015 104 CO2 (mmol/L) Date Value 11/26/2015 21 Creatinine (mg/dL) Date Value 11/26/2015 0.72 BUN (mg/dL) Date Value 11/26/2015 14 Anion Gap (mmol/L) Date Value 11/26/2015 15 Calcium (mg/dL) Date Value 11/26/2015 9.1 Protein, Total (g/dL) Date Value 11/26/2015 7.9 Albumin (g/dL) Date Value 11/26/2015 4.4 Bilirubin, Total (mg/dL) Date Value 11/26/2015 0.3 Alkaline Phosphatase (U/L) Date Value 11/26/2015 58 AST (U/L) Date Value 11/26/2015 32 ALT (U/L) Date Value 11/26/2015 29 Hemoglobin (g/dL) Date Value 04/26/2017 11.7 Hematocrit (%) Date Value 04/26/2017 35.0 WBC (k/uL) Date Value 04/26/2017 9.04 LDL Chol, Leanna (mg/dL) Date Value 04/25/2008 73 No results found for: HBA1C Ejection Fraction: No results found IMPRESSION: Ms. Nevarez is a 41 year old woman presents for follow up visit. After my examination and review of data, I make the following recommendations. PLAN AND RECOMMENDATIONS: 1. Chronic hepatitis C affecting , antepartum (HCC) - ICD9: 647.63, 070.54, ICD10: O98.419, B18.2 Keep appointment with computer systems information director. Watch for signs of bleeding, yellowing of skin or jaundice, swelling in abdomen, change in level of consciousness, come in for check up immediately for any of these symptoms. Keep routine follow-up with nurse capacity planning manager/kayaking instructor. Call for any concerns for internal medicine. Follow-up for health maintenance with internal medicine once is over. - CONSULT TO INFECTIOUS DISEASES - CONSULT TO GASTROENTEROLOGY 2. Visit for screening mammogram - ICD9: V76.12, ICD10: Z12.31 (primary diagnosis) - MARCIE SCREENING - MARCIE SCREENING W TAHMINA Advised to go to ER if develops chest pain, shortness of breath, or severe worsening of symptoms. Discussed risks, benefits, alternatives, and potential side effects of medications. Ms. Nevarez expressed understanding and agreed with the plan. NOHEMI Keller Observed: 09/21/2017 Status: F Source: [place] BACT/CAND VAG GRM ST 1:50 PM [facility] REPOSITORY Sp. Request/Comment: - Swab Smear Result - BACTERIAL VAGINOSIS RESULT: Stain results indicate mixed morphotypes consistent with transition from normal vaginal reynold. No Yeast observed No Polymorphonuclear leukocytes Performed By: #### BVCNSM #### [facility] [place] [address] Observed: 09/21/2017 Status: F Source: [place] TRICHOMONAS PREP 1:50 PM [facility] REPOSITORY Sp. Request/Comment: - Swab Smear Result - Negative for Trichomonas vaginalis antigen This test was developed and its performance characteristics determined by [facility]'s Dannie Gerber [facility] [place] [facility]). It has not been cleared or approved by the FDA. [facility] is regulated under CLIA as qualified to perform high-complexity testing. This test is used for clinical purposes. It should not be regarded as investigational or for research. Performed By: #### TRICHO #### [facility] [employer] [address] [place] [address] GC/CHLAMYDIA AMPLIF Collected: 09/21/2017 Status: F Source: [place] 1:50 PM [facility] REPOSITORY TYPE CODE TESTS RESULT OUT OF REFERENCE UNITS RANGE LAB GCCTSR GC/Chlam Amp Cervix Source LAB GCAMPL GC Negative Amplification for Neisseria gonorrhoeae by amplification. LAB CLAMPL Chlamydia Negative Amplif for Chlamydia trachomatis by amplification. Performed By: #### GCCT #### [facility] [address] [place], [place] [address] PROGRESS Observed: 09/21/2017 Status: COMPLETED Source: [place] 1:36 PM [facility] REPOSITORY HNO ID: [id number] Author: Alexandra Melchor Service: (none) Author Type: Physician Type: Progress Notes Filed: 09/21/2017 2:18 PM Note Text: Wind Tunnel Technician offered: Patient declines. Tata Nevarez is a 41 year old female who presents for problem visit vaginal itching and burning for 6 month(s). HPI: She states that she has had this problem on and off for 6 months. She states that she has been treated several times and the symptoms come back after about a week. She has been treated for a bacterial infection and a yeast infection during her recent . She had a vaginal delivery 3 months ago. She was treated for a bladder infection 2 weeks ago. She currently complains of burning, throbbing, itching, odor, pain with sex, pain with urination. She denies bleeding with sex. She complains of fatigue. Denies fever or chills. She has not had any new sexual partners, but her baby's father has had sex with other people. PAST MEDICAL HISTORY Diagnosis Date - Allergic rhinitis, cause unspecified 12/15/2005 - Diarrhea - Generalized anxiety disorder Anxiety, Generalized - H/O miscarriage, currently 4 Miscarriages - Hemorrhage of gastrointestinal tract, unspecified - Hemorrhage of rectum and anus - Hepatitis C - Hepatitis C virus infection 10/16/2015 - History of gestational hypertension 01/02/2017 - History of maternal fourth degree perineal laceration, currently 01/02/2017 - Migraine, unspecified, with intractable migraine, so stated, without mention of status migrainosus Migraine - Nondependent alcohol abuse lives at [facility] - Other, mixed, or unspecified nondependent drug abuse lives at [facility] - PMH - PAST MEDICAL HISTORY OF heart mumur - Ulcerative (chronic) proctitis (HCC) PAST SURGICAL HISTORY Procedure Laterality Date - COLONOSCOPY W/BX 11/06/07 - INSERT INTRAUTERINE DEVICE 05/25/07 Mirena - REDUCTION OF LARGE BREAST Breast reduction - REMOVAL OF TONSILS,<12 Y/O age 16 Tonsillectomy FAMILY HISTORY Problem Relation Age of Onset - None Mother - Heart Father [place] age 43, elevated cholesterol - Cancer Maternal Grandmother ovarian cancer - Cancer Maternal Grandfather - Coronary Artery Disease Paternal Grandmother - Diabetes Paternal Grandmother - Cancer Paternal Grandfather Lung - None Sister 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 phenazopyridine (PYRIDIUM, GERIDIUM) 100 mg tablet Take 1 tablet by mouth three times daily as needed. fexofenadine (ELY) 180 mg tablet TAKE 1 TABLET BY MOUTH EVERY DAY metroNIDAZOLE (METROGEL) 0.75 % Vaginal Gel Use 1 Applicatorful vaginally once each week. hydrOXYzine pamoate (VISTARIL) 50 mg capsule Take 1 capsule by mouth at bedtime as needed for Anxiety. promethazine (PHENERGAN) 25 mg tablet TAKE 1 TABLET EVERY 6 HOURS NEEDED for nausea/vomiting Itkezttp-Bp-Nub-Fe-FA ( VITAMIN) tab Take 1 tablet by mouth once daily. ondansetron (ZOFRAN) 4 mg tablet Take 1 tablet by mouth every 8 hours as needed for Nausea/Vomiting. famotidine (PEPCID) 10 mg tablet Take 1 tablet by mouth twice daily. BISMUTH SUBSALICYLATE (PEPTO-BISMOL ORAL) Take by mouth. Loperamide HCl (IMODIUM) 2 mg tab Take 1 tablet by mouth as needed. No current facility-administered medications for this visit. Allergies As of Date: 09/21/2017 (No Known Allergies) Fully Assessed 09/21/2017 REVIEW OF SYSTEMS Abdomen: No bloating, early satiety, indigestion, or increased flatulence. No abdominal pain, nausea, vomiting, diarrhea, or constipation. Bladder: No dysuria, gross hematuria, urinary frequency, or incontinence. Complains of urgency. Breast: No breast lumps, nipple d/c, overlying skin changes, redness or skin retraction. Just finished breast feeding. Expanded ROS: GENERAL: No weight loss, malaise or fevers Allergies and current medication updated:Yes EXAM: There were no vitals taken for this visit. GENERAL: pleasant, female in no apparent distress HEENT: Normocephalic and atraumatic NECK: Supple and full range of motion DERMATOLOGY: Normal, without lesions, non-icteric and non-hirsute ABDOMEN: soft, non-tender and no masses PELVIC: external genitalia normal, normal Bartholin's glands, urethra, [place]'s glands, no vulvar lesions, no cervical lesions, good vaginal support, normal appearing perineal body and perianal region, light/yellow-green discharge, no lesion, no odor appreciated NEURO: alert and oriented x3,exam grossly non-focal EXTREMITIES: normal ASSESSMENT AND PLAN: 41yo with vaginal discharge and irritation 1) STD screening today- GC/Chlamydia, BV, TRICH, YEAST 2) Lotrisone for irritation until cultures come back 3) Vaginal hygiene reviewed Alexandra Melchor Observed: 09/21/2017 Status: COMPLETED Source: [place] 1:30 PM [facility] REPOSITORY Office Visit (WOOB) TATA NEVAREZ ([id number]) 1975 F Date Time Provider Department 09/21/17 1:30 PM ALEXANDRA MELCHOR WOOB During your visit today, we recorded the following information about you: Blood pressure Weight 124/74 74.4 kg Alexandra Melchor 09/21/2017 2:18 PM Signed Wind Tunnel Technician offered: Patient declines. Tata Nevarez is a 41 year old female who presents for problem visit vaginal itching and burning for 6 month(s). HPI: She states that she has had this problem on and off for 6 months. She states that she has been treated several times and the symptoms come back after about a week. She has been treated for a bacterial infection and a yeast infection during her recent . She had a vaginal delivery 3 months ago. She was treated for a bladder infection 2 weeks ago. She currently complains of burning, throbbing, itching, odor, pain with sex, pain with urination. She denies bleeding with sex. She complains of fatigue. Denies fever or chills. She has not had any new sexual partners, but her baby's father has had sex with other people. PAST MEDICAL HISTORY Diagnosis Date - Allergic rhinitis, cause unspecified 12/15/2005 - Diarrhea - Generalized anxiety disorder Anxiety, Generalized - H/O miscarriage, currently 4 Miscarriages - Hemorrhage of gastrointestinal tract, unspecified - Hemorrhage of rectum and anus - Hepatitis C - Hepatitis C virus infection 10/16/2015 - History of gestational hypertension 01/02/2017 - History of maternal fourth degree perineal laceration, currently 01/02/2017 - Migraine, unspecified, with intractable migraine, so stated, without mention of status migrainosus Migraine - Nondependent alcohol abuse lives at [facility] - Other, mixed, or unspecified nondependent drug abuse lives at [facility] - PMH - PAST MEDICAL HISTORY OF heart mumur - Ulcerative (chronic) proctitis (HCC) PAST SURGICAL HISTORY Procedure Laterality Date - COLONOSCOPY W/BX 11/06/07 - INSERT INTRAUTERINE DEVICE 05/25/07 Mirena - REDUCTION OF LARGE BREAST Breast reduction - REMOVAL OF TONSILS,<12 Y/O age 16 Tonsillectomy FAMILY HISTORY Problem Relation Age of Onset - None Mother - Heart Father [place] age 43, elevated cholesterol - Cancer Maternal Grandmother ovarian cancer - Cancer Maternal Grandfather - Coronary Artery Disease Paternal Grandmother - Diabetes Paternal Grandmother - Cancer Paternal Grandfather Lung - None Sister 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 phenazopyridine (PYRIDIUM, GERIDIUM) 100 mg tablet Take 1 tablet by mouth three times daily as needed. fexofenadine (ELY) 180 mg tablet TAKE 1 TABLET BY MOUTH EVERY DAY metroNIDAZOLE (METROGEL) 0.75 % Vaginal Gel Use 1 Applicatorful vaginally once each week. hydrOXYzine pamoate (VISTARIL) 50 mg capsule Take 1 capsule by mouth at bedtime as needed for Anxiety. promethazine (PHENERGAN) 25 mg tablet TAKE 1 TABLET EVERY 6 HOURS NEEDED for nausea/vomiting Opozpcjs-Yx-Bgm-Fe-FA ( VITAMIN) tab Take 1 tablet by mouth once daily. ondansetron (ZOFRAN) 4 mg tablet Take 1 tablet by mouth every 8 hours as needed for Nausea/Vomiting. famotidine (PEPCID) 10 mg tablet Take 1 tablet by mouth twice daily. BISMUTH SUBSALICYLATE (PEPTO-BISMOL ORAL) Take by mouth. Loperamide HCl (IMODIUM) 2 mg tab Take 1 tablet by mouth as needed. No current facility-administered medications for this visit. Allergies As of Date: 09/21/2017 (No Known Allergies) Fully Assessed 09/21/2017 REVIEW OF SYSTEMS Abdomen: No bloating, early satiety, indigestion, or increased flatulence. No abdominal pain, nausea, vomiting, diarrhea, or constipation. Bladder: No dysuria, gross hematuria, urinary frequency, or incontinence. Complains of urgency. Breast: No breast lumps, nipple d/c, overlying skin changes, redness or skin retraction. Just finished breast feeding. Expanded ROS: GENERAL: No weight loss, malaise or fevers Allergies and current medication updated:Yes EXAM: There were no vitals taken for this visit. GENERAL: pleasant, female in no apparent distress HEENT: Normocephalic and atraumatic NECK: Supple and full range of motion DERMATOLOGY: Normal, without lesions, non-icteric and non-hirsute ABDOMEN: soft, non-tender and no masses PELVIC: external genitalia normal, normal Bartholin's glands, urethra, [place]'s glands, no vulvar lesions, no cervical lesions, good vaginal support, normal appearing perineal body and perianal region, light/yellow- green discharge, no lesion, no odor appreciated NEURO: alert and oriented x3,exam grossly non-focal EXTREMITIES: normal ASSESSMENT AND PLAN: 41yo with vaginal discharge and irritation 1) STD screening today- GC/Chlamydia, BV, TRICH, YEAST 2) Lotrisone for irritation until cultures come back 3) Vaginal hygiene reviewed Alexandra Melchor Referring Provider: SELF [[id number]] Allergies As of Date: 09/21/2017 (No Known Allergies) Date Reviewed: 09/21/2017 Reviewed by: Clementine Mcelroy Ma - Fully Assessed Reason for Visit: Vaginal Infection [241] Primary Visit Diagnosis:Vaginal irritation [N89.8] Other Visit Diagnoses:Screen for STD (sexually transmitted disease) [Z11.3] Vaginal discharge [N89.8] Order(s):clotrimazole-betamethasone (LOTRISONE) creamApply 1 application to affected area twice daily.Disp: 15 gRfl: 0 BACT/RAUL VAG GRAM STAIN [SQBVCNSM] Order #: [id number] FUTURE TRICHOMONAS PREP [SQTRICHO] Order #: [id number] GC/CHLAMYDIA DNA DET [SQGCCAMP] Order #: [id number] Prescriptions as of 09/21/2017 Sig: CLOTRIMAZOLE-BETAMETHASONE 1 * Apply 1 application to affect* CEPHALEXIN 500 MG CAPSULE Take 1 capsule by mouth four * PHENAZOPYRIDINE 100 MG TABLET Take 1 tablet by mouth three * FEXOFENADINE 180 MG TABLET TAKE 1 TABLET BY MOUTH EVERY * METRONIDAZOLE 0.75 % VAGINAL * Use 1 Applicatorful vaginally* HYDROXYZINE PAMOATE 50 MG CAP* Take 1 capsule by mouth at be* PROMETHAZINE 25 MG TABLET TAKE 1 TABLET EVERY 6 HOURS A* VITAMIN,CALCIUM,MINE* Take 1 tablet by mouth once d* ONDANSETRON HCL 4 MG TABLET Take 1 tablet by mouth every * FAMOTIDINE 10 MG TABLET Take 1 tablet by mouth twice * PEPTO-BISMOL ORAL Take by mouth. 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 Rash and other nonspecific skin eruption [R21] INVALID FOR*01/02/2017 More... 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] INVALID FOR* Ulcerative (chronic) proctitis (HCC) [K51.20] INVALID FOR*01/02/2017 Hemorrhage of gastrointestinal tract, unspecifi*INVALID FOR*01/02/2017 DIARRHEA NOS [R19.7] INVALID FOR* Hypertrophy of breast [N62] INVALID FOR*01/02/2017 Hepatitis C virus infection [B19.20] INVALID FOR*08/11/2017 Drug addiction (HCC) [F19.20] INVALID FOR*01/02/2017 Elderly multigravida in first trimester [O09.52*INVALID FOR* History of maternal fourth degree perineal lace*INVALID FOR*08/11/2017 History of gestational hypertension [Z87.59] INVALID FOR*08/11/2017 Down syndrome of fetus in current [O3*INVALID FOR*08/11/2017 More... Chronic hepatitis C affecting , antepa*INVALID FOR* BV (bacterial vaginosis) [N76.0, B96.89] INVALID FOR*08/11/2017 More... Polyhydramnios in third trimester [O40.3XX0] INVALID FOR*08/11/2017 More... Encounter for sterilization [Z30.2] INVALID FOR* More... Prescriptions ordered this encounter Disp Refills Start End CLOTRIMAZOLE-BETAMETHASONE 1 %-0.05 * 15 g 0 09/21/2017 Route: TOPICAL Sig: Apply 1 application to affected area twice daily. Encounter Status:Closed by ALEXANDRA COLON MD on 09/21/17 CNCO Observed: 08/25/2017 Status: COMPLETED Source: [place] 12:00 AM [facility] REPOSITORY Letter Text Bree Joiner CNP [facility] [address], [place] [address] Tata Nevarez [address] [facility] [address] 08/25/2017 [facility] #: [id number] Dear Tata, This letter is to inform you that your pap smear has come back normal but your HPV results, a tool we also use to screen for cervical cancer, came back positive (abnormal). At this point, I would just like to repeat your pap and HPV next year at your annual exam. It is important you return for your yearly exam so that we can repeat this test and treat you as needed. We appreciate your confidence in choosing the [facility] for your medical care and we look forward to seeing you at your next appointment. Please feel free to call us if you have any questions regarding your test results at the phone number above. Sincerely, Bree Joiner CNP GC/CHLAMYDIA AMPLIF Collected: 08/11/2017 Status: F Source: [place] 4:08 PM [facility] REPOSITORY TYPE CODE TESTS RESULT OUT OF REFERENCE UNITS RANGE LAB GCCTSR GC/Chlam Amp Cervix Source LAB GCAMPL GC Negative Amplification for Neisseria gonorrhoeae by amplification. LAB CLAMPL Chlamydia Negative Amplif for Chlamydia trachomatis by amplification. Performed By: #### GCCT #### [facility] [address] [place], [place] [address] Observed: 08/11/2017 Status: F Source: [place] URINE CULTURE 4:08 PM [facility] REPOSITORY Sp. Request/Comment: - Specimen received in preservative Culture Result - >=100,000 CFU/ml Escherichia coli --> ABNORMAL ALERT ORGANISM: Escherichia coli METHOD: Minimum inhibitory concentration(Vitek) Antibiotic Interp CONNER Status Ampicillin RESISTANT >=32 F Gentamicin SUSCEPTIBLE <=1 F Trimeth sulfameth SUSCEPTIBLE <=20 F Cefazolin SUSCEPTIBLE 16 F CLSI breakpoints for therapy of uncomplicated UTI's due to E.coli, K.pneumoniae, and P.mirabilis were applied and may be used to predict the activity of oral agents(cefaclor, cefdinir, cefpodoxime, cefp rozil, cefuroxime, cephalexin, loracarbef). Ciprofloxacin SUSCEPTIBLE <=0.25 F Nitrofurantoin SUSCEPTIBLE <=16 F Cefepime SUSCEPTIBLE <=1 F Piperacillin/Tazobac SUSCEPTIBLE <=4 F Ampicillin Sulbact RESISTANT >=32 F Ceftriaxone SUSCEPTIBLE <=1 F Meropenem SUSCEPTIBLE <=0.25 F Ertapenem SUSCEPTIBLE <=0.5 F Performed By: #### URCUL #### [facility] [employer] [address] [id number] HPV W/GENOTYPE Collected: 08/11/2017 Status: F Source: SITKA 4:08 PM [facility] REPOSITORY TYPE CODE TESTS RESULT OUT OF RANGE REFERENCE UNITS LAB HPVT16 HPV HighRisk Negative for Type 16 HPV DNA high risk type 16 by PCR. LAB HPVT18 HPV HighRisk Negative for Type 18 HPV DNA high risk type 18 by PCR. LAB HPVHRO Abnormal HPV HighRisk Positive for Alert Other one or more of the following HPV DNA high risk types: 31,33,35,39,45 ,51,52,56,58,5 9,66,68 by PCR Result Comment: This test was developed and its performance characteristics determined by [facility]'s [facility] [place] ([facility] It has not been cleared or approved by the FDA. -[facility] is regulated under CLIA as qualified to perform high-complexity testing. This test is used for clinical purposes. It should not be regarded as inv estigational or for research. Performed By: #### HPVHRR #### [facility] [employer] [address] [address] CYTOLOGY Observed: 08/11/2017 Status: C Source: SITKA 4:08 PM [facility] REPOSITORY ADDITIONAL PROCEDURES PRESENT Specimen originated from [facility] Specimen #: [id number] Submitting Physician: STEPHON SOLOMON MD SPECIMEN SUBMITTED A: CERVICAL, SCREENING, FLUID FINAL DIAGNOSIS A. CERVICAL, SCREENING, FLUID Satisfactory for interpretation. Negative for intraepithelial lesion or malignancy. Predominance of coccobacilli consistent with shift in vaginal reynold. This specimen has been analyzed by the ThinPrep Imaging System, an automated imaging and review system, which assists the laboratory in evaluating cells on ThinPrep Pap tests. Following automated imaging, selected garcía from every slide are reviewed by a utility worker woolen mill. Van Lowery MD (Electronic Signature) ADDITIONAL PROCEDURE(S) HUMAN PAPILLOMA VIRUS Date Ordered: 08/15/2017 Date Reported: 08/16/2017 Procedure Results and Interpretation Negative for HPV DNA high risk type 16 by PCR. Negative for HPV DNA high risk type 18 by PCR. Positive for one or more of the following HPV DNA high risk types: 31,33,35,39,45,51,52,56,58,59,66,68 by PCR(*) This test was developed and its performance characteristics determined by [facility]'s [facility] [place] ([facility]). It has not been cleared or approved by the FDA. [facility] is regulated under CLIA as qualified to perform high-complexity testing. This test is used for clinical purposes. It should not be regarded as investigational or for research. CLINICAL DATA ROUTINE EXAM, HPV Testing: Yes, automatic HPV patients over 30 Date of Last Menstrual Period: Recent STAINS A: CERVICAL, SCREENING, FLUID THIN PREP DIAL PRINTER Date of Report: 08/24/2017 Date of Procedure: 08/11/2017 Date of Receipt: 08/15/2017 Submitted by: STEPHON SOLOMON MD Location: [facility] Diagnostic interpretation performed at [facility], [address] [place] [address]. The Pap Smear is a screening test for cervical cancer. False negative results occur with all screening tests, emphasizing the need for rescreening at recommended intervals, and clinical correlation. PROGRESS Observed: 08/11/2017 Status: COMPLETED Source: SITKA 3:42 PM [facility] REPOSITORY HNO ID: [id number] Author: Stephon Solomon Service: (none) Author Type: Physician Type: Progress Notes Filed: 08/11/2017 4:19 PM Note Text: VISIT Obstetric History T5 L6 SAB3 TAB0 Ectopic1 Multiple0 Live Births6 Name of Baby 1: EL Date: 01/10/96 GA: 40w0d Delivery: VAGINAL Apgar1: Not recorded Apgar5: Not recorded Living: Living Name of Baby 2: TARA Date: 01/28/99 GA: 38w0d Delivery: VAGINAL Apgar1: Not recorded Apgar5: Not recorded Living: Living Name of Baby 3: Not recorded Date: 09/23/01 GA: Not recorded Delivery: ECTOPIC Apgar1: Not recorded Apgar5: Not recorded Living: Not recorded Name of Baby 4: Not recorded Date: 04/01/02 GA: Not recorded Delivery: Not recorded Apgar1: Not recorded Apgar5: Not recorded Living: Not recorded Name of Baby 5: Not recorded Date: 09/23/04 GA: Not recorded Delivery: Not recorded Apgar1: Not recorded Apgar5: Not recorded Living: Not recorded Name of Baby 6: CHOCO Date: 07/28/05 GA: 38w0d Delivery: VAGINAL Apgar1: 8 Apgar5: 9 Living: Living Name of Baby 7: Aden Vázquez Date: 02/26/07 GA: 38w5d Delivery: Vaginal, Spontaneous Delivery Apgar1: 8 Apgar5: 9 Living: Living Name of Baby 8: Angelina Date: 10/05/11 GA: 38w0d Delivery: Vaginal, Spontaneous Delivery Apgar1: Not recorded Apgar5: Not recorded Living: Living Name of Baby 9: Not recorded Date: 06/23/16 GA: Not recorded Delivery: Not recorded Apgar1: Not recorded Apgar5: Not recorded Living: Not recorded Name of Baby 10: Bridger Hauser Date: 07/01/17 GA: 36w2d Delivery: Vaginal, Spontaneous Delivery Apgar1: 8 Apgar5: 9 Living: Living Tata Nevarez is a 41 year old year old here for visit. Delivery Summary: Recovery: Feeding: Breast and bottle feeding problems: latch issues Menses since delivery: Not resumed Menstrual pattern prior to : Regular periods Mccoll since delivery: Resumed Depression: denies symptoms of depression. See depression screening tab. Emotional support: Yes Bowel symptoms: Negative for abdominal discomfort, blood in stools or black stools and change in bowel habits Bladder symptoms: positive dysuria AND vaginal burning Other issues: None PAST MEDICAL HISTORY Diagnosis Date - Allergic rhinitis, cause unspecified 12/15/2005 - Diarrhea - Generalized anxiety disorder Anxiety, Generalized - H/O miscarriage, currently 4 Miscarriages - Hemorrhage of gastrointestinal tract, unspecified - Hemorrhage of rectum and anus - Hepatitis C - Hepatitis C virus infection 10/16/2015 - History of gestational hypertension 01/02/2017 - History of maternal fourth degree perineal laceration, currently 01/02/2017 - Migraine, unspecified, with intractable migraine, so stated, without mention of status migrainosus Migraine - Nondependent alcohol abuse lives at [facility] - Other, mixed, or unspecified nondependent drug abuse lives at [facility] - PMH - PAST MEDICAL HISTORY OF heart mumur - Ulcerative (chronic) proctitis (HCC) PAST SURGICAL HISTORY Procedure Laterality Date - COLONOSCOPY W/BX 11/06/07 - INSERT INTRAUTERINE DEVICE 05/25/07 Mirena - REDUCTION OF LARGE BREAST Breast reduction - REMOVAL OF TONSILS,<12 Y/O age 16 Tonsillectomy FAMILY HISTORY Problem Relation Age of Onset - None Mother - Heart Father [place] age 43, elevated cholesterol - Cancer Maternal Grandmother ovarian cancer - Cancer Maternal Grandfather - Coronary Artery Disease Paternal Grandmother - Diabetes Paternal Grandmother - Cancer Paternal Grandfather Lung - None Sister SOCIAL HISTORY 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 GENERAL: pleasant, female in no apparent distress HEENT: Normocephalic, atraumatic, mucus membranes moist and no lesions NECK: Supple, full range of motion, no adenopathy and thyroid normal DERMATOLOGY: Normal, without lesions, non-icteric and non-hirsute BREAST: soft, non-tender, symmetric, no dominant mass, normal nipple-areolar complex, no lymphadenopathy and no nipple discharge CHEST: Normal inspiratory effort ABDOMEN: soft, non-tender and no masses. PELVIC: external genitalia normal, normal Bartholin's glands, urethra, [place]'s glands, no vulvar lesions, no cervical lesions, good vaginal support, physiologic discharge present, normal appearing perineal body and perianal region BIMANUAL: uterus normal size, shape and consistency, no adnexal masses and non-tender NEURO: alert and oriented x3,exam grossly non-focal EXTREMITIES: normal ASSESSMENT AND PLAN: 41 year old status post with normal course. Contraception plan: IUD - Mirena Follow up: RTC for insertion of IUD Dysuria - rx keflex for UTI Vaginal infection testing including GC/chlam Pap done Stephon Solomon MD Observed: 08/11/2017 Status: F Source: SITKA VAGINAL SMR RAUL 2:48 AM [facility] REPOSITORY Sp. Request/Comment: - Swab Smear Result - Stain results consistent with bacterial vaginosis. Few --> ABNORMAL ALERT Clue cells present --> ABNORMAL ALERT No Yeast observed Performed By: #### CANSTN #### [facility] [address] [place], [place] [address] CNCO Observed: 07/14/2017 Status: COMPLETED Source: SITKA 12:00 AM [facility] REPOSITORY Letter Text Heidi Roland M.D. [facility] [place], [place] [address] 07/14/2017 Re: Tata Alford Ricco Date of 1975 To Whom it May Concern, Tata Nevarez delivered her baby on 07/01/17. Please excuse patient from work beginning on 07/01/17 through 12 weeks . Please contact our office if you have any questions. Sincerely, Heidi Roland M.D. PROGRESS Observed: 07/04/2017 Status: COMPLETED Source: SITKA 3:03 PM [facility] REPOSITORY HNO ID: [id number] Author: Awilda Dumont LPN Service: (none) Author Type: (none) Type: Progress Notes Filed: 07/04/2017 3:05 PM Note Text: Pt delivered via at [facility] on 07/01/17 per Robb Nieto CNM. See OB Outcome note. Awilda Dumont LPN HOSP Observed: 07/04/2017 Status: COMPLETED Source: SITKA 12:00 AM [facility] REPOSITORY Patient Update (WOOB) TATA NEVAREZ ([id number]) 1975 F Date Time Provider Department 07/04/17 ROBB NIETO ([place]) WOOB During your visit today, we recorded the following information about you: Awilda Dumont LPN 07/04/2017 3:05 PM Signed Pt delivered via at [facility] on 07/01/17 per Robb Nieto CNM. See OB Outcome note. Awilda Dumont LPN Allergies As of Date: 07/04/2017 (No Known Allergies) Date Reviewed: 06/30/2017 Reviewed by: Maggy Alaniz - Fully Assessed Prescriptions as of 07/04/2017 Sig: FEXOFENADINE 180 MG TABLET TAKE 1 TABLET BY MOUTH EVERY * METRONIDAZOLE 0.75 % VAGINAL * Use 1 Applicatorful vaginally* HYDROXYZINE PAMOATE 50 MG CAP* Take 1 capsule by mouth at be* PROMETHAZINE 25 MG TABLET TAKE 1 TABLET EVERY 6 HOURS A* VITAMIN,CALCIUM,MINE* Take 1 tablet by mouth once d* ONDANSETRON HCL 4 MG TABLET Take 1 tablet by mouth every * FAMOTIDINE 10 MG TABLET Take 1 tablet by mouth twice * PEPTO-BISMOL ORAL Take by mouth. LOPERAMIDE 2 MG TABLET Take 1 tablet by mouth as nee* Problem List As Of Date 07/04/2017 Noted Resolved Opioid abuse, in remission [F11.11] INVALID FOR* More... Rash and other nonspecific skin eruption [R21] INVALID FOR*01/02/2017 More... 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 Chronic hepatitis C affecting , antepa*INVALID FOR* BV (bacterial vaginosis) [N76.0, B96.89] INVALID FOR* More... Polyhydramnios in third trimester [O40.3XX0] INVALID FOR* More... Encounter for sterilization [Z30.2] INVALID FOR* More... Encounter Status:Closed by AWILDA DUMONT LPN on 07/04/17 PROGRESS Observed: 07/03/2017 Status: COMPLETED Source: S[place] 11:10 AM [facility] REPOSITORY HNO ID: [id number] Author: Sherri Martinez (Sw) Service: (none) Author Type: Food Service Worker Hospital Type: Progress Notes Filed: 07/11/2017 4:26 PM Note Text: D[place] called and left message for patient to return phone call to discuss rental housing listing from [employer]. DISCHARGE INSTRUCTION Observed: 07/02/2017 Status: F Source: [place] 6:59 AM [facility] REPOSITORY [facility] Medical Records Department [address] [place] [address] Instructions for Home/Discharge Instructions 07/02/17 0658 MR#: [id number] Acct: [id number] Name: TATA NEVAREZ Rep #: [id number] : 1975 41 From: Robb Nieto CNM PCP: Franco Valdes MD Status: ADM IN Discharge Diet: No Restrictions Discharge Activity: Return to Normal Activity, May not drive while taking narcotic pain medications., May Shower May resume sexual activity in: 4-6 weeks Additional Activity Instructions:: Nothing in the vagina for 4-6 weeks. You may return to work/school in 6 weeks. Call your doctor if your incision/area has: Continuous Slow Oozing, Sudden Increased Bleeding, Increased Pain/ Swelling, Increased Redness, Foul Smelling Discharge Call your doctor if you observe: Fever of 101 or Higher, Inability to urinate, Inability to have a bowel movement, Using more than one pad per hour, Uncontrolled pain Additional Instructions: If you experience any of the following, contact your healthcare provider. * Bleeding that soaks a pad every hour for 2 hours * Fever 100.4 or higher * Unrelieved incision or abdominal pain * Swelling, redness, discharge or bleeding from your incision or episiotomy site * Your incision begins to separate * Problems urinating (including inability to urinate or burning while urinating). * Visual changes * Severe headache * Flu-like symptoms * Pain or redness in one of both of your breasts * Pain, warmth, tenderness or swelling in your legs, especially the calf area * Frequent nausea and vomiting * Symptoms of depression or anxiety If you experience any of the following, call 911 or go to the nearest Emergency Room. * Chest pain * Problems breathing * Seizure activity * Partial or complete paralysis of a body part, slurred speech, weakness or drooping of the face, or a sudden inability to walk or hold your balance Allergies/Adverse Reactions: Allergies No Known Allergies Allergy (Verified 06/30/17 17:36) Medications to take at Discharge Pnv95/Ferrous Fumarate/FA [ Formula] 1 each PO DAILY 01/09/17 Orders to be completed after discharge: Electric breast pump Location: None Selected When: Call to make an appointment with your doctor in 6 weeks. If you had elevated Blood Pressure or 4th degree laceration you will need to be seen in 2 weeks. Primary Care Physician: Franco Valdes MD [Primary Care Provider] - 07/02/17 0659 <Electronically signed by Robb Nieto CNM> Date Robb Nieto CNM CC: Franco Valdes MD CBC-COMPLETE BLOOD CNT Collected: 07/02/2017 Status: F Source: [place] NO DIFF 3:15 AM [facility] REPOSITORY Order Comment: Reason for Laboratory Test Day #1 TYPE CODE TESTS RESULT OUT OF RANGE REFERENCE UNITS LAB L100.1000 4.4-11.0 K/mm3 Normal WBC 8.0 LAB L100.1200 4.2-5.4 M/mm3 Low RBC 3.79 LAB L100.1300 12.0-15.0 g/dl Normal HGB 12.0 LAB L100.1400 37-47 % Low HCT 35.8 LAB L100.1500 81-99 fL Normal MCV 94.5 LAB L100.1600 27.0-32.0 pg Normal MCH 31.7 LAB L100.1700 32-36 g/gl Normal MCHC 33.5 LAB L100.1810 11.6-14.6 % Normal RDW CV 13.9 LAB L100.1820 35.1-43.9 fl High RDW SD 47.3 LAB L100.1900 150-450 K/mm3 Normal PLT 157 LAB L100.2000 6.2-12.0 fl Normal MPV 8.8 Performed By: #### L100.0500 #### [facility] [address] [place], [address] PATHOLOGY SPECIMEN OB Collected: 07/01/2017 Status: F Source: [place] 2:04 AM [facility] REPOSITORY Order Comment: Reason for Laboratory Test Placenta for lab studies Send Specimen For (Specify): Send Out: Chrosomal Study Time of Procedure: 134 Date of Procedure: 07/01/17 Reason specimen being sent to pathology (Hx/complications): Known Trisomy 21 Baby, Short Cord Type of specimen: Placenta Type of procedure performed: Other TYPE CODE TESTS RESULT OUT OF RANGE REFERENCE UNITS LAB L350.1800 SEE Normal PATH. PATHOLOGY Spec. OB REPORT Result Comment: Specimen submitted to Anatomical Pathology Department for testing. Performed By: #### L350.1800 #### [facility] [address] [place], [address] OPERATIVE REPORT Observed: 07/01/2017 Status: F Source: [place] 2:00 AM [facility] REPOSITORY [facility] Medical Records Department [address] [address] Operative Report 07/01/17 0148 MR#: [id number] Acct: [id number] Name: TATA NEVAREZ Rep #: [id number] : 1975 41 From: Robb Nieto CNM PCP: Franco Valdes MD Status: ADM IN Location: [place] [address] Vaginal Delivery Maternal Presentation: Medically Indicated Induction Method of Induction: Pitocin - Pitocin discontinued during labor though for repetative prolonged decels, Amniotomy Medical Reason for Induction: Gestational Hypertension, - - Non-reassuring NST, BPP = 6/10. Known Trisomy 21 baby. Amniotic Membrane Rupture Type: Artificial Amniotic Fluid Description: Clear, Lightly stained meconium Final UZIEL: 07/27/17 Final UZIEL Source: US <20 weeks Gestational age: 36 Weeks and 2 Days [place] doctor who attended delivery (if requested by OB): Giselle Ortiz Date of Procedure: 07/01/17 Pre-Operative Diagnosis: IOL @ 36.1 wks for Non-reactive NST, Category II FHT, BPP = 6/10, Known T21 Post-Operative Diagnosis: @ 36.2 wks Surgery/ Procedure Performed: Spontaneous Vaginal Delivery Anesthesiologist: Rama Dye Type of Anesthesia: Epidural Description of Procedure: Patient found to be C/C/+1 station with urge to push. Due to Category II FHT during much of labor and known Trisomy 21 baby, Location Worker irrigation manager and SCN nurse present at delivery. Patient pushed well with urge, decels to 80s noted during the pushing phase. Patient pushed easily to crown and then delivered viable girl baby over intact perineum at 0118. Infant with spontaneous cry and respirations, Apgars 8 and 9. Mouth and nose bulb suctioned and dried and stimulated. Umbilical clamped and cut by one of patient's support people, then placenta delivered spontaneously via Lujan mechanism after 3rd stage pitocin per protocol was started. Placenta intact with 3VC; cord short. Due to known Trisomy and short cord, placenta sent to pathology for evaluation. EBL = 150cc. Upon inspection of vaginal vault, no lacerations noted. No repair indicated. Sponge count correct. Vagina sweep negative. Fghz-eh-vboy initiated. Bonding initiated. Robb Nieto CNM Presentation: Vertex, YASSINE Placental Delivery Description: Spontaneous Placenta Disposition: Routine to Lab Cord Vessel Description: 3 Vessels Cord Entanglement: None Drain: Du to straight drain Estimated Blood Loss: 150 Infant A gender: Female (1 minute): 8 (5 minute): 9 Episiotomy Description: None Laceration: None Medications given after delivery: IV Pitocin Complications: None 07/01/17 0200 <Electronically signed by Robb Nieto CNM> Date Robb Nieto CNM CC: AUGUSTO Nieto; Franco Valdes MD Signed PLACENTA Observed: 07/01/2017 Status: F Source: [place] 12:00 AM [facility] REPOSITORY Patient: TATA NEVAREZ : 1975 (41/F) Acct Num: [id number] Phys: Karly CHÁVEZ,Alexandra Unit Num: [id number] Loc: WP [id number] Specimen: [id number] Received: 07/01/17 - 1449 Spec Type: PLACENTA TISSUES TISSUES: Placenta, NOS COMMENT Portions of the placenta are submitted for cytogenetic studies. GROSS DESCRIPTION SPECIMEN: PLACENTA / CLINICAL INFORMATION: A. Weight: 2.699 kg B. Gestational Age: 36 weeks C. Sex: Female PLACENTAL WEIGHT (POST FIXATION): 445 gm PLACENTAL DIMENSIONS: 18 x 17 x 3 cm PLACENTAL SHAPE: Usual ovoid PLACENTAL WEIGHT FOR GESTATIONAL AGE: Within 10-99th percentile MEMBRANES - Present A. Insertion: Marginal B. Site of rupture from edge: 2 cm from edge of placental disc C. Color of membrane: Muñoz-santos D. Abnormalities: None UMBILICAL CORD - Present A. Color: Muñoz-santos B. Insertion: Eccentric C. Length: 22 cm D. Diameter: 1 cm E. Number of vessels: Three F. Abnormalities: None PLACENTAL DISC - Present A. Color of surface: Muñoz-santos B. surface abnormalities: None C. Maternal cotyledons: Intact with minimal tears D. Attached retro placental clot: No clot E. Cut surface: Dark red and spongy F. Lesions: None G. Separate clot: Absent SECTIONS SUBMITTED: 1. Membrane roll and umbilical cord ( end notched) 2. Placental disc, and maternal surfaces 3. Placental disc, and maternal surfaces 4. Placental disc, and maternal surfaces AM:jose 07/04/17 TC:5 CPT: 80117 HEADER OPERATION: Vaginal delivery PRE-OP DIAGNOSIS: Known trisomy 21 baby, short cord TISSUE SUBMITTED: Placenta MICROSCOPIC DESCRIPTION Slides are reviewed. MICROSCOPIC DIAGNOSIS Olson placenta (445 gm): Short umbilical cord trivascular with no inflammation. Placental membranes focal pigmented macrophages. Placental disc hypovascular villi and mildly increased intraparenchymal fibrin plaques. AM:jose 07/05/17 Signed Mitch Vazquez 07/05/17 <signature on file> Performed By: #### PPLAC #### [facility] [address] [place], [address] HISTORY AND PHYSICAL Observed: 06/30/2017 Status: F Source: [place] EXAM 7:03 PM [facility] REPOSITORY [facility] Medical Records Department [address] [place] [address] History and Physical 06/30/17 1843 MR#: [id number] Acct: [id number] Name: TATA NEVAREZ Rep #: [id number] : 1975 41 From: Heidi Roland MD PCP: Franco Valdes MD Status: ADM IN Y Location: [place] [address] History Date of Admission: 06/30/17 Final UZIEL: 07/27/17 Final UZIEL Source: US <20 weeks Gestational age: 36 Weeks and 1 Days History of this : Lov-nhyr-nvl 10 para 5045 who presents at 36-1/7 weeks gestation with EDC of 07/27/2017 by LMP Confirmed by first trimester ultrasound presents from the office due to BPP of 6 out of 10 today. Nonreactive nonstress test with a late deceleration and several variable decelerations but a normal baseline and moderate variability. has been located to date by suspected to have trisomy 21 also had polyhydramnios. Pertinent Past Medical History: Chronic hepatitis C History of opioid use disorder Allergic rhinitis Stenosis Oral herpes Early multigravida Social issues-has had housing issues this winter Alexandr Headaches Surgical history Tonsillectomy and breast reduction Allergies No Known Allergies Allergy (Verified 06/30/17 17:36) Current Medications Acetaminophen (Tylenol) 325 - 650 mg PO Q4H PRN PRN PRN Reason: PAIN OR FEVER >100.4F Al Hydroxide/Mg Hydroxide (Mylanta Ii) 15 - 30 ml PO Q4H PRN PRN PRN Reason: INDIGESTION Citric Acid/Sodium Citrate (Bicitra) 30 ml PO UD PRN Oxytocin/Sodium Chloride () 30 units in 500 mls @ 1 mls/hr IV .Q500H SNEHA Lactated Ringer's () 1,000 mls @ 50 mls/hr IV .Q20H SNEHA Nalbuphine HCl (Nubain) 5 - 10 mg IV Q3H PRN PRN PRN Reason: PAIN (4-10/10) Ondansetron HCl (Zofran) 4 mg IV Q8H PRN PRN PRN Reason: NAUSEA Promethazine HCl (Phenergan (Ll)) 6.25 - 12.5 mg IV Q4H PRN PRN; Protocol PRN Reason: IF NAUSEA PERSISTS Sodium Chloride () 5 - 15 ml IV UD [facility] Smoking Status: Current every day smoker Alcohol: None Drug Use: none - currently, h/o IV and other drug use Number of Fetus(es): 1 Review of Systems Constitutional: Reports: Fever, Fatigue Cardiovascular: Reports: Chest Pain, Edema Respiratory: Reports: Cough Gastrointestinal: Reports: Abdominal Pain Genitourinary: Reports: Dysuria Skin: Reports: Rash Physical Exam General: Alert, Cooperative, No apparent distress Cardiovascular: Regular rate Lungs: Normal air movement Abdomen: Soft, Non-Distended, - - fundus large due to polyhydramnios Extremities:: No edema Presentation: Cephalic Cervix Dilation (cm): 3 - AROM w/ return clear fluid Station: -2 Effacement (%): 70 Assessment/Plan FHTs- normal baseline, moderate variability, some variable decels. A/[id number] multigravida female at 36-1/7 weeks gestation Estimated weight is less than 4500 g is in the pelvis is clinically adequate to expect vaginal delivery epiural if desires Location Worker aware of suspected trisomy 21 and patient's medical history Rapid group B strep sent 06/30/17 1903 <Electronically signed by Heidi Roland MD> Date Heidi Roland MD Cosigner Signature: Date (if applicable) CC: Franco Valdes MD; Heidi Roland MD Signed URINE DRUG SCREEN Collected: 06/30/2017 Status: F Source: [facility]ANNA (VISTA) 6:20 PM [facility] REPOSITORY TYPE CODE TESTS RESULT OUT OF RANGE REFERENCE UNITS LAB L505.0075 TO BE Normal CONFIRMED Result Comment: CONFIRMATORY TESTING FOR ALL POSITIVE URINE DRUG SCREEN RESULTS WILL ONLY BE SENT OUT UPON PHYSICIAN ORDER. VISTA Urine Drug Screen methods provide only preliminary analytical test results. A more specific alternate chemical method must be used in order to obtain a confirmed analytical result. Gas chromatography/mass spectrometery (GC/MS) is the preferred confirmatory method. Clinical consideration and professional judgement should be applied to any drug of abuse test result, particularly when preliminary positive results are used. URINE TCA TESTING MUST BE ORDERED SEPARATELY. USE TEST MNEMONIC: [facility] LAB L505.5005 VISTA UDS PH 6 Normal LAB L505.5015 <1000 ng/mL AMPHETAMINES Normal NEGATIVE LAB L505.5025 < 200 ng/mL BARBITIURATES Normal NEGATIVE LAB L505.5035 < 200 ng/mL BENZODIAZIPINE Normal NEGATIVE LAB L505.5045 < 300 ng/mL COCAINE Normal NEGATIVE LAB L505.5055 < 500 ng/mL ECSTACY Normal NEGATIVE LAB L505.5065 < 300 ng/mL METHADONE Normal NEGATIVE LAB L505.5075 < 300 ng/mL OPIATES Normal NEGATIVE LAB L505.5085 < 25 ng/mL PCP Normal NEGATIVE LAB L505.5095 < 50 High ng/mL THC POSITIVE Performed By: #### L505.5000 #### [facility] [address] [place] [address]. [place], [place], [address] CBC-COMPLETE BLOOD CNT Collected: 06/30/2017 Status: F Source: [place] NO DIFF 6:15 PM [facility] REPOSITORY TYPE CODE TESTS RESULT OUT OF RANGE REFERENCE UNITS LAB L100.1000 4.4-11.0 K/mm3 Normal WBC 9.5 LAB L100.1200 4.2-5.4 M/mm3 Low RBC 3.78 LAB L100.1300 12.0-15.0 g/dl Low HGB 11.9 LAB L100.1400 37-47 % Low HCT 35.1 LAB L100.1500 81-99 fL Normal MCV 92.9 LAB L100.1600 27.0-32.0 pg Normal MCH 31.5 LAB L100.1700 32-36 g/gl Normal MCHC 33.9 LAB L100.1810 11.6-14.6 % Normal RDW CV 13.7 LAB L100.1820 35.1-43.9 fl High RDW SD 45.1 LAB L100.1900 150-450 K/mm3 Normal PLT 169 LAB L100.2000 6.2-12.0 fl Normal MPV 8.7 Performed By: #### L100.0500 #### [facility] [address] [place], [address] TYPE AND SCREEN Collected: 06/30/2017 Status: F Source: [facility] 6:15 PM [facility] REPOSITORY Order Comment: Reason for Type AND Screen/Red Cells: ROUTINE TYPE CODE TESTS RESULT OUT OF RANGE REFERENCE UNITS LAB B10.0800 A Normal BLOOD TYPE GEL POSITIVE LAB B100.4000 Normal Antibody NEGATIVE Screen Performed By: #### B101.7450 #### [facility] [address] [place], [address] GROUP B STREP DNA Collected: 06/30/2017 Status: F Source: [facility] BY PCR 5:40 PM [facility] REPOSITORY TYPE CODE TESTS RESULT OUT OF RANGE REFERENCE UNITS LAB L8200.0100 Negative Normal GBS TEST Negative RESULT Performed By: #### L8200.0000 #### [facility] [address] [facility] [place], [address] PROGRESS Observed: 06/30/2017 Status: COMPLETED Source: [place] 3:07 PM [facility] [place] REPOSITORY HNO ID: [id number] Author: Sherri Martinez (Sw) Service: (none) Author Type: Food Service Worker Hospital Type: Progress Notes Filed: 07/11/2017 4:26 PM Note Text: Patient and Sw discussed housing help through [employer]. Patient reports that they will assist patient with rent and deposit once baby is born. Patient is looking for efficiency apt. Sw told patient that she would check with SHAN Matthews for updated rental listing. Patient also asking about programs to help with baby development once she is born. Dafne gave patient Leanna [employer] number to help assist with obtaining information about their Part C program once the baby is born. Dafne will let patient know what she finds out in regards to [employer] rental listing. PROGRESS Observed: 06/30/2017 Status: COMPLETED Source: [place] 2:55 PM [facility] REPOSITORY HNO ID: [id number] Author: Maggy Alaniz Service: (none) Author Type: Physician Type: Progress Notes Filed: 06/30/2017 3:32 PM Note Text: The patient presents for a requested ultrasound. A full report is available in the imaging tab in [facility]. Maggy Alaniz MD, PhD MFM database reporting consultant, [facility] Observed: 06/30/2017 Status: F Source: [place] CULTURE, GROUP B 12:00 AM [facility] STREPTOC[facility]US REPOSITORY ABDIRAHMAN Culture Group B Beta Streptococcus is not isolated. Performed By: #### M100.1800 #### [facility] [address] [place], [address] PROGRESS Observed: 06/26/2017 Status: COMPLETED Source: [place] 3:53 PM [facility] REPOSITORY HNO ID: [id number] Author: Heidi Roland Service: (none) Author Type: Physician Type: Progress Notes Filed: 06/26/2017 3:53 PM Note Text: NST SUMMARY PROVIDER ASSESSMENT AND INTERPRETATION Tata Nevarez is a 41 year old female, , who is at 35w4d with an UZIEL of 07/27/2017, by Last Menstrual Period dating method. Indications for NST: Polyhydramnios Baseline: 130 Variability: Moderate Accelerations: Present 15 X 15 Decelerations: None Contractions: TOCO: Irregular Interpretation: Category I and Reactive SIGNATURE: Heidi Roland MD PROGRESS Observed: 06/26/2017 Status: COMPLETED Source: [place] 2:46 PM [facility] REPOSITORY HNO ID: [id number] Author: Maggy Alaniz Service: (none) Author Type: Physician Type: Progress Notes Filed: 06/26/2017 2:46 PM Note Text: The patient presents for a requested ultrasound. A full report is available in the imaging tab in Epic. Maggy Alaniz MD, PhD MFM database reporting consultant, [facility] PROGRESS Observed: 06/26/2017 Status: COMPLETED Source: [place] 9:38 AM [facility] REPOSITORY HNO ID: [id number] Author: Maggy Alaniz Service: (none) Author Type: Physician Type: Progress Notes Filed: 06/26/2017 9:43 AM Note Text: A olson intrauterine has been noted. EGA = 35w1d Estimated Date of Delivery: 07/27/17 AGA with EFW at the 79 th% The heart rate is regular without dysrhythmias and falls within the normal range for gestational age. Bilateral Ventriculomegaly is still noted BPP = 12/27 There is no evidence of hydrops. Polyhydramnios with JOSE = 32 cm Pericardial fluid is noted measuring 2 to 3 mm, possibly tamia The placenta is fundal. No maternal structural anatomical uterine of adnexal abnormalities are noted. The limitations of ultrasound have been addressed with the patient. RECOMMENDATIONS: - Follow up ultrasound after 3 days to reevaluate the pericardial effusion - Weekly US for JOSE and to rule out hydrops - kick counts - NST - Risks associated with polyhydramnios are (PTL, PPROM, cord prolapse, abruption, and/or hemorrhage due to uterine atony) - Deliver at 39 weeks if testing is reassuring secondary to polyhydramnios and T21 PROGRESS Observed: 06/23/2017 Status: COMPLETED Source: [place] 4:44 PM [facility] REPOSITORY HNO ID: [id number] Author: Heidi Roland Service: (none) Author Type: Physician Type: Progress Notes Filed: 06/23/2017 4:44 PM Note Text: NST SUMMARY PROVIDER ASSESSMENT AND INTERPRETATION Tata Nevarez is a 41 year old female, , who is at 35w1d with an UZIEL of 07/27/2017, by Last Menstrual Period dating method. Indications for NST: AMA Baseline: 120 Variability: Moderate Accelerations: Present 15 X 15 Decelerations: None Contractions: TOCO: Irregular Interpretation: Category I and Reactive SIGNATURE: Heidi Roland MD PROGRESS Observed: 06/21/2017 Status: COMPLETED Source: [place] 5:15 PM [facility] REPOSITORY HNO ID: [id number] Author: Robb Nieto Service: (none) Author Type: Flexo Press Operator Type: Progress Notes Filed: 06/21/2017 5:17 PM Note Text: NST SUMMARY PROVIDER ASSESSMENT AND INTERPRETATION Tata Nevarez is a 41 year old female, , who is at 34w6d with an UZIEL of 07/27/2017, by Last Menstrual Period dating method. Indications for NST: AMA, Polyhydramnios and Other: Known Down Syndrome Child Baseline: 120 Variability: Moderate Accelerations: Present 15 X 15 Decelerations: None Contractions: TOCO: Irregular Interpretation: Category I and Reactive SIGNATURE: Robb Nieto CNM PROGRESS Observed: 06/21/2017 Status: COMPLETED Source: [place] 5:14 PM [facility] REPOSITORY HNO ID: [id number] Author: Robb Nieto Service: (none) Author Type: Flexo Press Operator Type: Progress Notes Filed: 06/21/2017 5:17 PM Note Text: CM - S: Tata Nevarez presents for a routine OB visit at 34w6d. She presents with her friend and sponsor Harjinder. She denies LOF, VB, DFM or cramping/contractions. Patient has hx of IBS, has been taking Imodium for diarrhea symptoms and has increased frequency of pill-taking up to almost 20 pills/day. Referral to [facility] today as Imodium (Loperamide) in high quantities can give a high sensation. Patient requests assistance so she can remain stable and to help her with craving-like symptoms. O: See flow sheet Gen: A+O x 3, NAD. Pupils slightly constricted, patient wiping nose at times. Abd: NT x 4 quadrants, S=D, EFW 5#, Polyhydramnios Extremities: No edema A/P: 34w6d IUP. AMA, Hx of Substance Use Disorder, Polyhydramnios and of known Down Syndrome Child. RTO 1 Weeks for follow up. Call with LOF, VB, DFM or cramping/contractions. 1. Down syndrome of fetus in current , fetus 6 or greater -Weekly BPP and NST - URINE OB DIP B/O(aka UA CHEMSTRIP) [[id number]] 2. 34 weeks gestation of -[facility] teaching and PTL precautions reviewed - URINE OB DIP B/O(aka UA CHEMSTRIP) [[id number]] 3. History of Substance Use Disorder -Phone consult with [facility] providers, patient to go immediately after office visit today for evaluation. -Encourage abstinence from Imodium at this time. Robb Nieto CNM HOSP Observed: 06/21/2017 Status: COMPLETED Source: [place] 2:30 PM [facility] REPOSITORY Routine Office Visit (WOOB) TATA NEVAREZ ([id number]) 1975 F Date Time Provider Department 06/21/17 2:30 PM ROBB NIETO CNM During your visit today, we recorded the following information about you: Blood pressure Weight 123/77 80.9 kg Olamide Lundberg Ma 06/21/2017 2:38 PM Signed SEQUENTIAL SCREENINGS [facility] offers sequential screenings for women who are interested in screenings for chromosomal abnormalities and certain defects during a . The sequential screen combines ultrasound and blood tests to determine the risk of chromosomal abnormalities, including Down's Syndrome (Trisomy 21) and Trisomy 18, as well as open neural tube defects including spina bifida. Ultrasound examination is performed between 11 weeks and 13 weeks gestational age. Blood tests are drawn after the ultrasound and again later in the between 15 and 21 weeks gestational age. Please let your physician know if you are interested in this testing. It will require an appointment with our combination technician. This is not an ultrasound performed by a physician in our office during a routine visit. SIGNS AND SYMPTOMS OF LABOR 1. Contractions every 10 minutes or more often 2. Clear, pink, or brownish fluid (water) leaking from vagina 3. Feeling that baby is pushing down, pressure 4. Low, dull backache 5. Cramps that feel like a period 6. Cramps with or without diarrhea If you notice any of the above symptoms, contact our office at [phone] and ask to speak with a nurse. After hours, you can call doctors registry at [phone] OR call [facility] at [phone] and ask to have the doctor irrigation manager paged. If you consider this an emergency, dial 91- or go to your nearest emergency department. NEED HELP? Are you dealing with a violent or abusive relationship? Are you a victim of rape or sexual assult? Call [facility] ([place]) 24 hour Crisis Hotline: 259.320.8401 or 258-786-7315. MANUAL Your Guide to a Healthy manual is now on-line. Visit [email or web address] to download your free copy Robb Nieto CNM 06/21/2017 5:17 PM Signed CM - S: Tata Nevarez presents for a routine OB visit at 34w6d. She presents with her friend and sponsor Harjinder. She denies LOF, VB, DFM or cramping/contractions. Patient has hx of IBS, has been taking Imodium for diarrhea symptoms and has increased frequency of pill-taking up to almost 20 pills/day. Referral to [facility] today as Imodium (Loperamide) in high quantities can give a high sensation. Patient requests assistance so she can remain stable and to help her with craving-like symptoms. O: See flow sheet Gen: A+O x 3, NAD. Pupils slightly constricted, patient wiping nose at times. Abd: NT x 4 quadrants, S=D, EFW 5#, Polyhydramnios Extremities: No edema A/P: 34w6d IUP. AMA, Hx of Substance Use Disorder, Polyhydramnios and of known Down Syndrome Child. RTO 1 Weeks for follow up. Call with LOF, VB, DFM or cramping/contractions. 1. Down syndrome of fetus in current , fetus 6 or greater -Weekly BPP and NST - URINE OB DIP B/O(aka UA CHEMSTRIP) [[id number]] 2. 34 weeks gestation of -[facility] teaching and PTL precautions reviewed - URINE OB DIP B/O(aka UA CHEMSTRIP) [[id number]] 3. History of Substance Use Disorder -Phone consult with [facility] providers, patient to go immediately after office visit today for evaluation. -Encourage abstinence from Imodium at this time. AUGUSTO Bennett CNM 06/21/2017 5:17 PM Signed NST SUMMARY PROVIDER ASSESSMENT AND INTERPRETATION Tata Nevarez is a 41 year old female, , who is at 34w6d with an UZIEL of 07/27/2017, by Last Menstrual Period dating method. Indications for NST: AMA, Polyhydramnios and Other: Known Down Syndrome Child Baseline: 120 Variability: Moderate Accelerations: Present 15 X 15 Decelerations: None Contractions: TOCO: Irregular Interpretation: Category I and Reactive SIGNATURE: Robb Nieto CNM Referring Provider: SELF [200] Allergies As of Date: 06/21/2017 (No Known Allergies) Date Reviewed: 06/21/2017 Reviewed by: Robb Nieto - Fully Assessed Reason for Visit: Care [86] Primary Visit Diagnosis:Down syndrome of fetus in current , fetus 6 or greater [O35.1XX9] Other Visit Diagnoses:34 weeks gestation of [Z3A.34] Polyhydramnios in third trimester complication, single or unspecified fetus [O40.3XX0] Opioid abuse, in remission [F11.11] Order(s):URINE OB DIP B/O [[id number]] Order #: [id number] Prescriptions as of 06/21/2017 Sig: METRONIDAZOLE 0.75 % VAGINAL * Use 1 Applicatorful vaginally* HYDROXYZINE PAMOATE 50 MG CAP* Take 1 capsule by mouth at be* PROMETHAZINE 25 MG TABLET TAKE 1 TABLET EVERY 6 HOURS A* VITAMIN,CALCIUM,MINE* Take 1 tablet by mouth once d* ONDANSETRON HCL 4 MG TABLET Take 1 tablet by mouth every * FAMOTIDINE 10 MG TABLET Take 1 tablet by mouth twice * PEPTO-BISMOL ORAL Take by mouth. 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 Rash and other nonspecific skin eruption [R21] INVALID FOR*01/02/2017 More... 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 Chronic hepatitis C affecting , antepa*INVALID FOR* BV (bacterial vaginosis) [N76.0, B96.89] INVALID FOR* More... Polyhydramnios in third trimester [O40.3XX0] INVALID FOR* More... Encounter for sterilization [Z30.2] INVALID FOR* More... Other instructions from your clinician: SEQUENTIAL SCREENINGS [facility] offers sequential screenings for women who are interested in screenings for chromosomal abnormalities and certain defects during a . The sequential screen combines ultrasound and blood tests to determine the risk of chromosomal abnormalities, including Down's Syndrome (Trisomy 21) and Trisomy 18, as well as open neural tube defects including spina bifida. Ultrasound examination is performed between 11 weeks and 13 weeks gestational age. Blood tests are drawn after the ultrasound and again later in the between 15 and 21 weeks gestational age. Please let your physician know if you are interested in this testing. It will require an appointment with our combination technician. This is not an ultrasound performed by a physician in our office during a routine visit. SIGNS AND SYMPTOMS OF LABOR 1. Contractions every 10 minutes or more often 2. Clear, pink, or brownish fluid (water) leaking from vagina 3. Feeling that baby is pushing down, pressure 4. Low, dull backache 5. Cramps that feel like a period 6. Cramps with or without diarrhea If you notice any of the above symptoms, contact our office at [phone] and ask to speak with a nurse. After hours, you can call doctors registry at [phone] OR call [facility] at [phone] and ask to have the doctor irrigation manager paged. If you consider this an emergency, dial or go to your nearest emergency department. NEED HELP? Are you dealing with a violent or abusive relationship? Are you a victim of rape or sexual assult? Call [facility] ([facility] 24 hour Crisis Hotline: 603.152.5546 or 346-925-7830. MANUAL Your Guide to a Healthy manual is now on-line. Visit [email or web address] to download your free copy Disposition: Return in about 1 week (around 06/28/2017), or if symptoms worsen or fail to improve. Follow-up and Disposition History Recorded Encounter Status:Closed by ROBB NIETO CNM on 06/21/17 PROGRESS Observed: 06/16/2017 Status: COMPLETED Source: [place] 3:27 PM [facility] REPOSITORY HNO ID: [id number] Author: Maggy Alaniz Service: (none) Author Type: Physician Type: Progress Notes Filed: 06/16/2017 3:28 PM Note Text: The patient presents for a requested ultrasound. A full report is available in the imaging tab in Epic. Maggy Alaniz MD, PhD MFM database reporting consultant, [facility] PROGRESS Observed: 06/16/2017 Status: COMPLETED Source: [place] 3:11 PM [facility] REPOSITORY HNO ID: [id number] Author: Heidi Roland Service: (none) Author Type: Physician Type: Progress Notes Filed: 06/16/2017 3:13 PM Note Text: NST SUMMARY PROVIDER ASSESSMENT AND INTERPRETATION Tata Nevarez is a 41 year old female, , who is at 34w1d with an UZIEL of 07/27/2017, by Last Menstrual Period dating method. Indications for NST: AMA and Polyhydramnios Baseline: 120 Variability: Moderate Accelerations: Present 15 X 15 Decelerations: None Contractions: TOCO: Irregular Interpretation: Category I and Reactive SIGNATURE: Heidi Roland MD [facility] Observed: 06/16/2017 Status: COMPLETED Source: [place] 2:50 PM [facility] REPOSITORY Routine Office Visit (WOOB) TATA NEVAREZ ([id number]) 1975 F Date Time Provider Department 06/16/17 2:50 PM HEIDI ROLAND During your visit today, we recorded the following information about you: Viji Cormier Chris 06/16/2017 2:09 PM Signed SEQUENTIAL SCREENINGS [facility] offers sequential screenings for women who are interested in screenings for chromosomal abnormalities and certain defects during a . The sequential screen combines ultrasound and blood tests to determine the risk of chromosomal abnormalities, including Down's Syndrome (Trisomy 21) and Trisomy 18, as well as open neural tube defects including spina bifida. Ultrasound examination is performed between 11 weeks and 13 weeks gestational age. Blood tests are drawn after the ultrasound and again later in the between 15 and 21 weeks gestational age. Please let your physician know if you are interested in this testing. It will require an appointment with our combination technician. This is not an ultrasound performed by a physician in our office during a routine visit. SIGNS AND SYMPTOMS OF LABOR 1. Contractions every 10 minutes or more often 2. Clear, pink, or brownish fluid (water) leaking from vagina 3. Feeling that baby is pushing down, pressure 4. Low, dull backache 5. Cramps that feel like a period 6. Cramps with or without diarrhea If you notice any of the above symptoms, contact our office at [phone] and ask to speak with a nurse. After hours, you can call doctors registry at [phone] OR call [facility] at [phone] and ask to have the doctor irrigation manager paged. If you consider this an emergency, dial 9-1-1 or go to your nearest emergency department. NEED HELP? Are you dealing with a violent or abusive relationship? Are you a victim of rape or sexual assult? Call [facility] ([place]) 24 hour Crisis Hotline: 152.350.6119 or 763-319-3876. MANUAL Your Guide to a Healthy manual is now on-line. Visit [email or web address] to download your free copy Heidi Roland MD 06/16/2017 3:13 PM Signed NST SUMMARY PROVIDER ASSESSMENT AND INTERPRETATION Tata Nevarez is a 41 year old female, , who is at 34w1d with an UZIEL of 07/27/2017, by Last Menstrual Period dating method. Indications for NST: AMA and Polyhydramnios Baseline: 120 Variability: Moderate Accelerations: Present 15 X 15 Decelerations: None Contractions: TOCO: Irregular Interpretation: Category I and Reactive SIGNATURE: Heidi Roland MD Referring Provider: SELF [200] Allergies As of Date: 06/16/2017 (No Known Allergies) Date Reviewed: 06/16/2017 Reviewed by: Viji Cormier Ma - Fully Assessed Reason for Visit: Care [86] Primary Visit Diagnosis:34 weeks gestation of [Z3A.34] Other Visit Diagnoses:High-risk in third trimester [O09.93] Polyhydramnios in third trimester complication, single or unspecified fetus [O40.3XX0] AMA (advanced maternal age) multigravida 35+, third trimester [O09.523] Encounter for sterilization [Z30.2] Order(s):URINE OB DIP B/O [[id number]] Order #: [id number] Prescriptions as of 06/16/2017 Sig: METRONIDAZOLE 0.75 % VAGINAL * Use 1 Applicatorful vaginally* HYDROXYZINE PAMOATE 50 MG CAP* Take 1 capsule by mouth at be* PROMETHAZINE 25 MG TABLET TAKE 1 TABLET EVERY 6 HOURS A* VITAMIN,CALCIUM,MINE* Take 1 tablet by mouth once d* ONDANSETRON HCL 4 MG TABLET Take 1 tablet by mouth every * FAMOTIDINE 10 MG TABLET Take 1 tablet by mouth twice * PEPTO-BISMOL ORAL Take by mouth. 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 Rash and other nonspecific skin eruption [R21] INVALID FOR*01/02/2017 More... 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 Chronic hepatitis C affecting , antepa*INVALID FOR* BV (bacterial vaginosis) [N76.0, B96.89] INVALID FOR* More... Polyhydramnios in third trimester [O40.3XX0] INVALID FOR* More... Encounter for sterilization [Z30.2] INVALID FOR* More... Notes for Staff Will only call if abnormal Other instructions from your clinician: SEQUENTIAL SCREENINGS [facility] offers sequential screenings for women who are interested in screenings for chromosomal abnormalities and certain defects during a . The sequential screen combines ultrasound and blood tests to determine the risk of chromosomal abnormalities, including Down's Syndrome (Trisomy 21) and Trisomy 18, as well as open neural tube defects including spina bifida. Ultrasound examination is performed between 11 weeks and 13 weeks gestational age. Blood tests are drawn after the ultrasound and again later in the between 15 and 21 weeks gestational age. Please let your physician know if you are interested in this testing. It will require an appointment with our combination technician. This is not an ultrasound performed by a physician in our office during a routine visit. SIGNS AND SYMPTOMS OF LABOR 1. Contractions every 10 minutes or more often 2. Clear, pink, or brownish fluid (water) leaking from vagina 3. Feeling that baby is pushing down, pressure 4. Low, dull backache 5. Cramps that feel like a period 6. Cramps with or without diarrhea If you notice any of the above symptoms, contact our office at [phone] and ask to speak with a nurse. After hours, you can call doctors registry at [phone] OR call [facility] at [phone] and ask to have the doctor irrigation manager paged. If you consider this an emergency, dial [phone] or go to your nearest emergency department. NEED HELP? Are you dealing with a violent or abusive relationship? Are you a victim of rape or sexual assult? Call [facility] ([place]) 24 hour Crisis Hotline: 304.452.7822 or 578-873-9171. MANUAL Your Guide to a Healthy manual is now on-line. Visit [email or web address] to download your free copy Follow Up: Will only call if abnormal Disposition: Return in about 1 week (around 06/23/2017) for routine OB check. Follow-up and Disposition History Recorded Encounter Status:Closed by HEIDI ROLAND MD on 06/16/17 HOSP Observed: 06/16/2017 Status: COMPLETED Source: [place] 1:45 PM [facility] REPOSITORY Routine Office Visit (WOOB) TATA NEVAREZ ([id number]) 1975 F Date Time Provider Department 06/16/17 1:45 PM MAGGY ALANIZ During your visit today, we recorded the following information about you: Maggy Alaniz MD 06/16/2017 3:28 PM Signed The patient presents for a requested ultrasound. A full report is available in the ANDquot; imagingANDquot; tab in Epic. Maggy Alaniz MD, PhD MFM database reporting consultant, [facility] Referring Provider: HEIDI ROLAND [[id number]] Allergies As of Date: 06/16/2017 (No Known Allergies) Date Reviewed: 06/16/2017 Reviewed by: Maggy Alaniz - Fully Assessed Primary Visit Diagnosis:34 weeks gestation of [Z3A.34] Other Visit Diagnoses:Polyhydramnios in third trimester complication, single or unspecified fetus [O40.3XX0] Down syndrome of fetus in current , single or unspecified fetus [O35.1XX0] Opioid abuse, in remission [F11.11] Prescriptions as of 06/16/2017 Sig: METRONIDAZOLE 0.75 % VAGINAL * Use 1 Applicatorful vaginally* HYDROXYZINE PAMOATE 50 MG CAP* Take 1 capsule by mouth at be* PROMETHAZINE 25 MG TABLET TAKE 1 TABLET EVERY 6 HOURS A* VITAMIN,CALCIUM,MINE* Take 1 tablet by mouth once d* ONDANSETRON HCL 4 MG TABLET Take 1 tablet by mouth every * FAMOTIDINE 10 MG TABLET Take 1 tablet by mouth twice * PEPTO-BISMOL ORAL Take by mouth. 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 Rash and other nonspecific skin eruption [R21] INVALID FOR*01/02/2017 More... 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 Chronic hepatitis C affecting , antepa*INVALID FOR* BV (bacterial vaginosis) [N76.0, B96.89] INVALID FOR* More... Polyhydramnios in third trimester [O40.3XX0] INVALID FOR* More... Encounter for sterilization [Z30.2] INVALID FOR* More... Encounter Status:Closed by MAGGY ALANIZ MD on 06/16/17 CNCO Observed: 06/15/2017 Status: COMPLETED Source: [place] 12:00 AM [facility] REPOSITORY Letter Text Ami Negron CNP [facility] [address] [place] [phone] 06/15/2017 RE: Tata Nevarez : 1975 To Whom It May Concern: This letter is to notify that the below mentioned medications are considered safe during if they are deemed medically necessary. Generally any medication listed as category B. Dental x-ray?s are safe with the use of a lead apron. Pain Medications: Tylenol with codeine( 30 mg), Vicodin Antibiotics: Penicillin, ampicillin, amoxicillin, clindamycin Anesthetics: local If you have any questions please feel free to give our office a call. Sincerely, Migdalia Mueller CNP PROGRESS Observed: 06/14/2017 Status: COMPLETED Source: [place] 6:18 PM [facility] REPOSITORY HNO ID: [id number] Author: Robb Nieto Service: (none) Author Type: [employer]o Press Operator Type: Progress Notes Filed: 06/14/2017 6:25 PM Note Text: NST SUMMARY PROVIDER ASSESSMENT AND INTERPRETATION Tata Nevarez is a 41 year old female, , who is at 33w6d with an UZIEL of 07/27/2017, by Last Menstrual Period dating method. Indications for NST: AMA and Polyhydramnios Baseline: 115 Variability: Mild initially, after PO juice Moderate Accelerations: Present 15 X 15, 2 accels. Few other accels noted. Decelerations: None Contractions: TOCO: None Interpretation: Category I and Reactive SIGNATURE: Robb Nieto CNM HOSP Observed: 06/14/2017 Status: COMPLETED Source: [place] 3:15 PM [facility] REPOSITORY Routine Office Visit (WOOB) TATA NEVAREZ ([id number]) 1975 F Date Time Provider Department 06/14/17 3:15 PM ROBB NIETO) WOOB During your visit today, we recorded the following information about you: Robb Nieto CNM 06/14/2017 6:25 PM Signed NST SUMMARY PROVIDER ASSESSMENT AND INTERPRETATION Tata Nevarez is a 41 year old female, , who is at 33w6d with an UZIEL of 07/27/2017, by Last Menstrual Period dating method. Indications for NST: AMA and Polyhydramnios Baseline: 115 Variability: Mild initially, after PO juice Moderate Accelerations: Present 15 X 15, 2 accels. Few other accels noted. Decelerations: None Contractions: TOCO: None Interpretation: Category I and Reactive SIGNATURE: Robb Nieto CNM Referring Provider: ALEXANDRA MELCHOR [[id number]] Allergies As of Date: 06/14/2017 (No Known Allergies) Date Reviewed: 06/14/2017 Reviewed by: Robb Banerjee) Joseph - Fully Assessed Primary Visit Diagnosis:NST (non-stress test) reactive on surveillance [Z36.89] Other Visit Diagnoses:AMA (advanced maternal age) multigravida 35+, third trimester [O09.523] Polyhydramnios in third trimester complication, single or unspecified fetus [O40.3XX0] Prescriptions as of 06/14/2017 Sig: METRONIDAZOLE 0.75 % VAGINAL * Use 1 Applicatorful vaginally* HYDROXYZINE PAMOATE 50 MG CAP* Take 1 capsule by mouth at be* PROMETHAZINE 25 MG TABLET TAKE 1 TABLET EVERY 6 HOURS A* VITAMIN,CALCIUM,MINE* Take 1 tablet by mouth once d* ONDANSETRON HCL 4 MG TABLET Take 1 tablet by mouth every * FAMOTIDINE 10 MG TABLET Take 1 tablet by mouth twice * PEPTO-BISMOL ORAL Take by mouth. LOPERAMIDE 2 MG TABLET Take 1 tablet by mouth as nee* Problem List As Of Date 06/14/2017 Noted Resolved Opioid abuse, in remission [F11.11] INVALID FOR* More... Rash and other nonspecific skin eruption [R21] INVALID FOR*01/02/2017 More... 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 Chronic hepatitis C affecting , antepa*INVALID FOR* BV (bacterial vaginosis) [N76.0, B96.89] INVALID FOR* More... Polyhydramnios in third trimester [O40.3XX0] INVALID FOR* More... Disposition: Return in about 2 days (around 06/16/2017), or if symptoms worsen or fail to improve, for ABDIRAHMAN+BPP. Follow-up and Disposition History Recorded Encounter Status:Closed by ROBB NIETO CNM on 06/14/17 ALLERGIES ALLERGIES DATE TYPE / CODE NAME / CODE REACTION SEVERITY SOURCE 05/06/2018 Drug No Known Unknown [place] Allergy/416 Allergies/[id number] Community 394955(SNOM 388(RXNORM) Hospital ED CT) Repository 02/14/2018 DRUG SERTRALINE Mental Chg [facility] INGREDI/[address] [facility] 866244(SNOM Repository ED CT) NG/[id number] NO KNOWN [facility]) Repository Drug NO KNOWN [facility] Class/47193 ALLERGIES [facility] 1003(SNOMED Repository CT) ENCOUNTERS ENCOUNTERS ADMIT/DISCHARGE ACCOUNT NUMBER ADMITTING ENCOUNTER LOCATION SOURCE CLASS 05/06/2018/05/06/20 [id number] Emergency [place] Leanna 18 [facility] ding:ED Repository 04/17/2018/04/18/20 [id number] Ambulatory [address] [facility] [place] Repository 03/09/2018/03/14/20 [id number] Ambulatory [address] Repository 02/14/2018/02/22/20 [id number] Ambulatory [address] Repository 01/25/2018 [id number] Ambulatory [facility] MEDICAL Repository CENTERBuildi ng:AGGASTW 10/10/2017/10/12/19 [id number] Ambulatory [address] [facility] [place] [facility] Repository 09/21/2017/09/26/19 [id number] Ambulatory [address] [place] Repository 08/11/2017/08/15/19 [id number] Ambulatory [address] Repository 06/30/2017/07/02/19 [id number] [facility] Inpatient Leanna Leanna 18 [address], Alexandra Encounter [facility] ding:WPRoom: Repository [id number]: 1 06/30/2017/07/03/19 [id number] Ambulatory [address] [facility] [place] [facility] Repository 06/30/2017/07/03/19 [id number] Ambulatory [address] [facility] [place] Repository 06/26/2017/06/26/19 [id number] Ambulatory [address] [facility] [place] Repository 06/26/2017/07/06/19 [id number] Ambulatory [address] [facility] [place] Repository 06/26/2017/06/27/19 [id number] Ambulatory [address] [facility] [place] Repository 06/23/2017/06/26/19 [id number] Ambulatory [address] [facility] [place] Repository 06/23/2017/06/27/19 [id number] Ambulatory [address] Repository 06/21/2017/06/22/19 [id number] Ambulatory [address] Repository 06/21/2017/06/21/19 [id number] Ambulatory [address] Repository 06/16/2017/02/27/20 [id number] Ambulatory [address] Repository 06/16/2017/06/19/19 [id number] Ambulatory [address] Repository 06/14/2017/06/15/19 [id number] Ambulatory [address] Repository 06/14/2017/06/14/19 [id number] Ambulatory [address] Repository PAYERS PAYERS ENCOUNTER GUARANTOR PAYER SUBSCRIBER SOURCE 05/06/2018 Tata Primary Tata [place] [id number] Insurance:CARESOURCEP [facility]: [id number] [id number]ository [place] [address]Lmf: Date:2018-05-06[address]ATTN: CLAIMS () [place] [phone]: 05/06/2018 Secondary NOT NICK Leanna Insurance:SELF PAY [facility] Number: Effective Repository Date:2018-05-06 01/25/2018 TATA L Primary TATA L [facility] EDWARDSDOB: Insurance:CARESOURCE MOHANB: [facility] MEDICAIDPolicy [id number] Number: [place], [place] [id number] [address]Frp: (330) Date: [id number] (HP) 06/30/2017 Tata Primary Tata Nevarez4400 Insurance:CARESOURCEP EdwardsDOB: [facility] Lali che Number: [id number] [id number] Repository [address]Zpl: (330) Date:2017-06-30P O [phone] () [address]ATTN: [place] [phone]: 06/30/2017 Secondary NOT GIVENUNK Leanna Insurance:SELF PAY [facility] Number: Effective Repository Date:2017-06-30
== END 2018-05-06 13:48 | disposition home or self-care (01) ==
PROVIDERS: Emergency Provider Emergency Medicine; Family Provider Internal Medicine; PCP Internal Medicine
DX: S01.111A Laceration without foreign body of right eyelid and periocular area, initial encounter (principal); S00.83XA Contusion of other part of head, initial encounter; Z23 Encounter for immunization; Z72.0 Tobacco use; Y04.2XXA Assault by strike against or bumped into by another person, initial encounter; Y93.89 Activity, other specified; Y92.89 Other specified places as the place of occurrence of the external cause; Y99.8 Other external cause status
CPT/HCPCS: 12011; 90715; 99285

== ENCOUNTER 2020-08-28 06:38 | Emergency (ER) | payer MEDICAID, SELFPAY ==
[2020-08-28 06:39] VITALS: BP 151/106; PULSE 71; RESP 16; TEMP 36.4; O2SAT 100; BMI 24.0
--- NOTE | 2020-08-28 06:42 | CT_ITS ---
STUDY: CT ABDOMEN AND PELVIS WITHOUT CONTRAST REASON FOR EXAM: Female, 44 years old. Flank pain RADIATION DOSAGE (If Supplied By Facility): CTDIvol = ( 7 ) mGy, DLP = ( 337 ) mGycm TECHNIQUE: Transaxial images were obtained from the dome of the diaphragm to the symphysis pubis without oral contrast, and without intravenous contrast. Sagittal and coronal images were reconstructed. Individualized dose optimization techniques were used for this CT. COMPARISON: 12/19/14 FINDINGS: Evaluation of the abdominal viscera is limited in the absence of intravenous contrast. The visualized lung bases are clear. The visualized portions of the heart and pericardium are within normal limits. There are no calcified gallstones present. The liver demonstrates an unremarkable unenhanced appearance. The spleen is normal in size. The pancreas demonstrates an unremarkable unenhanced appearance. The adrenal glands are within normal limits. There are small bilateral nonobstructing renal collecting system stones, measuring up to 2 mm. There are no ureteral stones. There is no hydronephrosis. Normal visualized stomach. There is no bowel obstruction or inflammation. There is a large amount of stool in the colon, consistent with constipation. The appendix is visualized and appears normal. The aorta is normal in caliber. There is no abdominal or pelvic free air, free fluid, fluid collection or lymphadenopathy. There are no destructive osseous lesions. CT/Abdomen/Pelvis without Cont IMPRESSION: Bilateral subcentimeter nonobstructing renal collecting system stones. No ureteral stones. No hydronephrosis. No bowel obstruction or inflammation. Normal appendix. Constipation. Electronically Signed: Blake Wang MD at 7:45 EDT Tel , Service support ,
--- NOTE | 2020-08-28 06:43 | ED.VIS.GEN ---
History of Present Illness Informant: Patient Onset: Today, Hours Context: Sudden Onset Timing: Continuous, Waxes and wanes Quality: Pain stabbing Location: Left upper quadrant left flank Current Severity: Moderate Maximum Severity: Severe Worsened by: Nothing Relieved by: Nothing Associated Symptoms: No urinary symptoms Narrative: Patient is a 44-year-old woman who presents with left upper flank pain left upper quadrant pain that started abruptly at 0459. The pain does not radiate to her groin. There is no history of trauma. Patient states she had similar pain when she was diagnosed with obstructing stone and when she was . Menses less than 1 week ago. She states she has not had sex in 2 years. She denies symptoms of . She denies rash. She does report nausea without vomiting. She denies upper respiratory infectious symptoms. She denies intolerance to greasy or fried foods. She has no history of hepatic or biliary disease. She denies history of pancreatitis. She denies history of peptic ulcer disease. Prior similar symptoms: Yes - Obstructing ureteral stone Recent Illness/Hospitalization: No <RuelJasiel - Last Filed: 08/28/20 07:27> <Peyman Bowser - Last Filed: 08/28/20 08:05> Chief Complaint: Flank Pain - Past Medical History (1) Ureteral stone Status: Acute (2) Incomplete Status: Acute <Jasiel Lipscomb - Last Filed: 08/28/20 07:27> Past Medical History Prior records reviewed: Yes Surgical History: noncontributory Lives: With Family Smoking Status: Current every day smoker Alcohol: Rare Drugs: None <Jasiel Lipscomb - Last Filed: 08/28/20 07:27> <Peyman Bowser - Last Filed: 08/28/20 08:05> - Allergies and Home Meds Allergies/Adverse Reactions: Allergies No Known Allergies Allergy (Verified 08/28/20 06:44) Primary Care Physician: Griselda Valdes MD [Primary Care Provider] - Review of Systems General: Denies: Chills, Fever, Malaise, Subjective Eyes: Denies: Visual changes - bilaterally, Blurred Vision - bilaterally ENT: Denies: Rhinorrhea, Sore throat Cardiovascular: Denies: Chest pain, Palpitations Respiratory: Reports: Cough - Chronic due to smoking. Denies: Dyspnea, Dyspnea on exertion, Orthopnea Gastrointestinal: Reports: Abdominal pain, Nausea. Denies: Vomiting, Diarrhea, Melena, Hematochezia Genitourinary: Denies: Dysuria, Hematuria, Frequency Musculoskeletal: Reports: Back pain. Denies: Myalgias, Arthralgias, Neck pain, Swelling, Extremity Pain, -, - Skin: Denies: Rash, Wounds Neurological: Denies: Headache, Weakness, Numbness Endocrine: Denies: Polyuria, Polydipsia Hematologic: Denies: Easy bruising, Easy bleeding <Lipscomb,Jasiel - Last Filed: 08/28/20 07:27> Physical Exam Vital Signs/Narrative: Vital Signs Temp Pulse Resp BP Pulse Ox 08/28/20 06:39 97.6 F L 71 16 151/106 H 100 Inital Vital Signs reviewed: Yes General: Well nourished, Well developed, No Acute Distress Head: Normocephalic, Atraumatic Eyes: Perrl, EOMI. Negative for: Pale conjunctiva, Scleral icterus ENT: Moist mucous membranes, No rhinorrhea Neck: Supple, Nontender, No lymphadenopathy, No JVD Cardiovascular: Regular rate, Regular rhythm, No murmurs, Normal S1, Normal S2 Respiratory: No distress, CTA bilaterally, Chest nontender Abdomen: Soft, Nontender, Nondistended, Normal bowel sounds, No masses Rectal: Deferred Back: Nontender, Normal Inspection. Negative for: CVA tenderness, Spinal tenderness Extremities: Nontender, No edema. Negative for: Tenderness, Edema Skin: Normal color, No rash, No Trauma. Negative for: Cyanosis, Diaphoresis, Jaundice, Rash Neurological: Alert, Oriented x3, Cranial nerves II-XII grossly intact, Normal Strength, Normal Sensation, Normal Gait Psychological: Normal affect, Normal Mood <Lipscomb,Jasiel - Last Filed: 08/28/20 07:27> Vital Signs/Narrative: Vital Signs Temp Pulse Resp BP Pulse Ox 08/28/20 06:39 97.6 F L 71 16 151/106 H 100 <Peyman Bowser - Last Filed: 08/28/20 08:05> Diagnostic/Tx/Re-eval - Medical Decision Making Abrupt onset of flank pain and prior history of urolithiasis suspect patient has an obstructing stone. Patient was medicated with IV Toradol and morphine. She received Zofran for her nausea. UA was obtained to assess for infection and CT of the abdomen pelvis was ordered to assess for obstructing stone. Patient urinalysis and CT are pending. Case discussed with the morning physician. Disposition to be made by Dr. Denny Bowser <Jasiel Lipscomb - Last Filed: 08/28/20 07:27> Impressions Abdomen/Pelvis CT 08/28/20 06:42 IMPRESSION: Bilateral subcentimeter nonobstructing renal collecting system stones. No ureteral stones. No hydronephrosis. No bowel obstruction or inflammation. Normal appendix. Constipation. Electronically Signed: Blake Wang MD at 7:45 EDT Tel , Service support , 08/28/20 06:42 Abdomen/Pelvis without Cont [CT] Stat Laboratory Results 08/28/20 07:05 Urine Color Yellow Urine Clarity Clear Urine pH 6.0 Ur Specific [place] 1.025 Urine Protein Negative Urine Glucose (UA) Normal Urine Ketones Negative Urine Occult Blood Negative Urine Nitrite Negative Urine Bilirubin Negative Urine Urobilinogen Normal Ur Leukocyte Esterase Negative Urine RBC 0 SEEN Urine WBC 0 SEEN Ur Squamous Epith Cells 0-5 SEEN Urine Bacteria 1+ Urine Mucus 1+ - Medical Decision Making Took over care of this patient. On reevaluation she is feeling well. She did get some local itching in her left upper extremity, likely due to histamine release from morphine being injected and an IV in her left forearm. She had no systemic symptoms or signs to suggest a true allergic reaction. She was treated with Benadryl and was a little groggy from that, but her pain was resolved and she is stable. She likely passed a small stone prior to imaging, we discussed the fact that she has small nephrolithiasis bilaterally and could have this pain again, and we discussed reasons to return she is comfortable with that plan. No sign of infection on her urinalysis. <Peyman Bowser - Last Filed: 08/28/20 08:05> ED Disposition <Jaisel Lipscomb - Last Filed: 08/28/20 07:27> <Peyman Bowser - Last Filed: 08/28/20 08:05> - Plan for ED Patient: Disposition: Home or Assisted Living Diagnosis: Renal colic on left side, Bilateral nephrolithiasis Instructions: ED Kidney Stone, Passed Referrals: Griselda Valdes MD [Primary Care Provider] - As Needed
[2020-08-28 07:10] LABS: Red Blood Cells-Urine 0 SEEN /hpf (0-5); White Blood Cells 0 SEEN /hpf (0-5)
[2020-08-28] MEDS: 0.9% Normal Saline 1,000 ML 250 ML IV (07:11)
[2020-08-28] MEDS: Ketorolac 15 MG/ML Vial IV (07:12)
[2020-08-28] MEDS: Ondansetron 4 MG/2 ML Vial IV (07:12)
[2020-08-28] MEDS: Morphine 4 MG/ML Syringe IV (07:12)
[2020-08-28 07:16] LABS: Color, Urine Yellow (Yellow); Glucose, Dipstick Normal (Normal); Ketone-Dipstick Negative (Negative); Leukocyte Esterase-Dipstick Negative /ul (Negative); Nitrite-Dipstick Negative (Negative); Occult Blood-Urine Negative /ul (Negative); Protein-Dipstick Negative (Negative); Specific Gravity, Urine 1.025 (1.002-1.030); Urine Bilirubin Dipstick Negative (Negative); Urine Clarity Clear (Clear); Urine Urobilinogen Normal (Normal)
[2020-08-28 07:25] LABS: Bacteria 1+ /hpf (None Seen); Mucous, Urine 1+ /hpf (<or=2+); Squamous Epithelial Cells - UA 0-5 SEEN /hpf (5-10)
[2020-08-28] MEDS: DiphenhydrAMINE 50 MG/ML Syringe 25 MG IV (07:31)
[2020-08-28] MEDS: Famotidine 200 MG/20 ML MDV 20 MG in 0.9% Normal Saline (Pres. free 8 ML 300 MG IV (07:37)
== END 2020-08-28 08:23 | disposition home or self-care (01) ==
PROVIDERS: Emergency Provider Emergency Medicine; PCP Internal Medicine
DX: N20.0 Calculus of kidney (principal); F17.200 Nicotine dependence, unspecified, uncomplicated
CPT/HCPCS: 74176; 81001; 96365; 96375; 99284; J7030; A4216; J2405; J3490

== ENCOUNTER 2023-05-18 18:10 | Emergency (ER) | payer MEDICAID, SELFPAY ==
[2023-05-18 18:11] VITALS: BP 160/104; PULSE 73; RESP 18; TEMP 35.8; O2SAT 100; BMI 25.7
--- NOTE | 2023-05-18 18:15 | RAD_ITS ---
EXAM: XR LEFT ELBOW, 2 VIEWS CLINICAL INDICATION: FALL INJURY TECHNIQUE: Frontal and lateral views of the left elbow. COMPARISON: No relevant prior studies available. FINDINGS: BONES/JOINTS: Unremarkable. There is no displacement of the anterior or posterior fat pads. No acute fracture. No subluxation. Normal alignment. Preservation of the joint space. No destructive or sclerotic lesions. SOFT TISSUES: Unremarkable. No soft tissue swelling or gas. No radiopaque foreign body. RAD/Elbow min 3 Views IMPRESSION: Negative left elbow. Electronically Signed: Chano Funez MD at 18:33 EST ,
--- NOTE | 2023-05-18 20:05 | EX.ED.UPPERE ---
HPI History of Present Illness Chief Complaint: Upper Extremity Injury Informant: patient Narrative Narrative: 47-year-old female states she was eating a [employer] today, she slipped on the slippery floor while there, she was wearing sandals, and fell landing directly on her left elbow. She is right-hand dominant. She has pain at the olecranon but nowhere else. No numbness or tingling into her hand or we missed. She is some soreness that radiates up into her shoulder on the left, and some soreness in one of the toes on the right. PFSH PFSH Medical History no medical history no medical history Home Medications NK 08/28/20 [History Last Taken Unknown] dextroamphetamine-amphetamine 15 mg tablet 15 mg PO BID 08/28/20 [History Last Taken Unknown] Allergy/AdvReac Type Severity Reaction Status Date / Time No Known Allergies Allergy Verified 05/18/23 18:11 Social History Smoking Status: Current every day smoker ROS ROS ED Constitutional Constitutional ED: Denies chills or fever(s) Musculoskeletal Musculoskeletal: Reports extremity pain; Denies neck pain Integumentary Denies Abrasions, rash or wounds Neurologic Neurologic: Denies paresthesias or weakness EXAM Physical Exam Const Vital Signs: 05/18/23 18:11 Temperature 96.5 F L Temperature Source Temporal Pulse Rate 73 Respiratory Rate 18 Blood Pressure 160/104 H Blood Pressure Mean 122 Pulse Ox 100 Oxygen Delivery Method Room Air Positive well nourished and well developed General Appearance ED: well developed and NAD Neck full ROM and supple Back/Spine normal ROM and normal to inspection Extremity full ROM Extremity Narrative: Small mild swelling and tenderness at the olecranon process, no other bony prominence tenderness in the left elbow. Able to fully extend. No pain with supination pronation. Neurovascular intact distally throughout the hand. No focal bony tenderness in the shoulder including the acromioclavicular joint. Full abduction without any difficulty in addition to internal and external rotation. Toes nontender. Neuro oriented x3, no focal motor deficits and no sensory deficits noted Sensorium / Orientation: alert Psych mental status grossly normal and thought process normal Skin no wounds Rashes: no rashes MDM MDM MDM Narrative Medical decision making narrative: Three-view x-ray series of the left elbow negative on my interpretation for any acute fracture or significant joint effusion. Radiology in agreement. Patient reassured given Naprosyn, appropriate instructions for supportive care at home and follow-up. I offered x-rays of her right foot but she declines and feels like it is very minor injury. Radiography Diagnostic Testing: Clinical Impression(s) from Imaging Studies Elbow X-Ray 05/18/23 18:15 IMPRESSION: Negative left elbow. Electronically Signed: Chano Funez MD at 18:33 EST , Discharge Plan Triage Chief Complaint: Upper Extremity Injury ED Provider: Peyman Bowser Dx/Rx/DC Orders Clinical Impression: Fall on same level from slipping, Contusion of elbow, left Instructions: ED Contusion, Elbow Prescriptions: No Action dextroamphetamine-amphetamine 15 MG tablet 15 mg PO BID NK Primary Care Provider: Griselda Valdes Referrals: Griselda Valdes MD [Primary Care Provider] - As Needed Disposition Disposition: Home, Self Care
--- OUTSIDE RECORDS SUMMARY | 2023-05-18 20:15 | XMS RPT_ITS | CCD ---
Author Name Unknown Address [address] [place] [address] Organization [facility] Care Team Providers Care Snuff Grinder And Screener Name Role Phone CALLIE MEJIAS Unavailable Unavailable ZEWAIL, ALESSANDRA Unavailable Unavailable KASIE BAIG Attending Unavailable TALAMPAS, FRANCO D Primary Care Unavailable KING, PRASHANT Referring Unavailable TALAMPAS, FRANCO D Primary Care Unavailable PRASHANT KING Attending Unavailable TALAMPAS, FRANCO D Primary Care Unavailable TALAMPAS, FRANCO D Primary Care Unavailable BREE JOINER Attending Unavailable TALAMPAS, FRANCO D Primary Care Unavailable OLDERBEA Attending Unavailable TALAMPAS, FRANCO D Primary Care Unavailable MIGDALIA MUELLER Attending Unavailable TALAMPAS, FRANCO D Primary Care Unavailable OLDER, BEA Referring Unavailable TALAMPAS, FRANCO D Primary Care Unavailable NICKOLAS STOLL Attending Unavailable OLDER, BEA Referring Unavailable TALAMPAS, FRANCO D Primary Care Unavailable TALAMPAS, FRANCO D Referring Unavailable TALAMPAS, FRANCO D Primary Care Unavailable Allergies Allergy Classification Reported Allergen(s) Allergy Type Date of Onset Reaction(s) Facility (1 source) buPROPion; Translations: [BUPROPION] Drug Allergy 10-01-2020 [facility] Repository (1 source) lamoTRIgine; Translations: [LAMOTRIGINE] Drug Allergy 04-08-2021 [facility] Repository (1 source) Sertraline; Translations: [SERTRALINE] Drug Allergy 02-14-2018 [facility] Repository Problems Active Problems Problem Classification Problem Date Documented Da te Episodic/Chronic Essential hypertension (1 source) Essential (primary) hypertension; Translations: [Essential hypertension] Onset: 08-27-2020 Chronic Menstrual disorders (1 source) Dysmenorrhea, unspecified; Translations: [Dysmenorrhea] Onset: 05-09-2022 Chronic Other screening for suspected conditions (not mental disorders or infectious disease) (1 source) Encounter for screening mammogram for malignant neoplasm of breast; Translations: [Encounter for screening mammogram for breast cancer] Onset: 03-27-2023 Episodic Regional enteritis and ulcerative colitis (1 source) Ulcerative colitis, unspecified with rectal bleeding; Translations: [Ulcerative colitis with rectal bleeding, unspecified location (HCC)] Onset: 08-27-2020 Chronic Past or Other Problems Problem Classification Problem Date Documented Da te Episodic/Chronic Hemorrhage during ; abruptio placenta; placenta previa (2 sources) Threatened ; Translations: [Threatened ] Onset: 01-25-2017 Episodic Malaise and fatigue (1 source) Other fatigue; Translations: [Other fatigue] Onset: 05-09-2022 Episodic Other gastrointestinal disorders (1 source) Diarrhea, unspecified; Translations: [Diarrhea, unspecified type] Onset: 11-06-2007 Episodic Other skin disorders (1 source) Nonscarring hair loss, unspecified; Translations: [Hair loss] Onset: 05-09-2022 Episodic Results Test Name Value Interpretation Reference Range Facil ity Encounters Encounter Date Encounter Type Care Provider Facility Start: 03-27-2023 Encounter for genera l adult medical examination without abnormal findings KASIE BAIG [facility] Start: 03-27-2023 End: 03-28-2023 ambulatory PRASHANT KING Facility:[facility] Start: 01-17-2023 End: 01-17-2023 ambulatory FRANCO VALDES Facility:[facility] Start: 12-27-2022 End: 12-27-2022 ambulatory KASIE BAIG Facility:[facility] Start: 06-17-2022 End: 06-17-2022 ambulatory BREE JOINER Facility:[facility] Start: 06-10-2022 End: 06-10-2022 ambulatory NICKOLAS STOLL Facility:[facility] Start: 05-09-2022 End: 05-09-2022 ambulatory BEA PATEL Facility:[facility] Start: 04-27-2022 End: 12-07-2022 ambulatory BEA OLDER Facility:[facility] Start: 04-11-2022 End: 04-11-2022 ambulatory MIGDALIA MUELLER Facility:[facility] Start: 01-25-2017 End: 01-30-2017 Ambulatory CALLIE MEJIAS Facility:[facility] Payers Date Payer Category Payer Medicaid [id number] 2017 Medicaid [id number] Progress note 03-27-2023 Note Date & Type Note Facility 03-27-2023 Note HNO ID: [id number] Author: Prashant King APRN.[employer]IVERS SUPERVISOR Service: ? Author Type: Nurse Practitioner Type: Progress Notes Filed: 03/27/2023 1:18 PM Note Text: Chief Complaint Patient presents with: Employment Physical HPI Hien Nevarez is a 47 year old female who presents here today for Above Complaints. Hien is an established patient of Dr. Lucio MD. She is a new patient to me today. Concerns today.. Ulcerative colitis -- Dx of UC from colonoscopy in 2013. Controlled with diet management alone. No medications. Rarely has flare-up, last flare was in 2019. Pt reports 1 month of flare currently. Reports BM about 5 x per day that are mucous, bloody diarrhea. Smells bad and onofre during BM. Lower abd burning and cramping. Pt reports this is how prior flares present and normally given a short term steroid and symtoms resolve. Has not seen GI since 2019. Avoids red meat since this normally makes symptoms worse. Denies any recent travel, antibiotics, or food intake that did not sit well. Needing employment physical. Starting new job at daycare facility. Needing MMR titers due to unknown MMR vaccine date. No other concerns or complaints. Past medical history, appointments, medications, allergies reviewed. Previous Medical History PAST MEDICAL HISTORY Diagnosis Date Allergic rhinitis, cause unspecified 12/15/2005 Attention deficit disorder Bilateral carpal tunnel syndrome Clostridioides difficile infection Diarrhea Generalized anxiety disorder Anxiety, Generalized H/O miscarriage, currently 4 Miscarriages Hemorrhage of rectum and anus Hepatitis C History of gestational hypertension 01/02/2017 History of maternal fourth degree perineal laceration, currently 01/02/2017 Migraine, unspecified, with intractable migraine, so stated, without mention of status migrainosus Migraine Nondependent alcohol abuse lives at [facility] Other, mixed, or unspecified nondependent drug abuse lives at [facility] PMH - PAST MEDICAL HISTORY OF heart mumur Ulcerative (chronic) proctitis (HCC) Previous Surgical History PAST SURGICAL HISTORY Procedure Laterality Date COLONOSCOPY aprox 2013 COLONOSCOPY 03/09/2020 ulcerative colitis, diverticulosis, internal hemorrhoids COLONOSCOPY W/BIOPSY SINGLE/MULTIPLE 11/06/2007 ulcerative proctitis INSERT INTRAUTERINE DEVICE 05/25/2007 Mirena - removed REDUCTION OF LARGE BREAST Breast reduction TONSILLECTOMY PRIMARY/SECONDARY Tonsillectomy ULTRASOUND ELASTOGRAPHY Family History FAMILY HISTORY Problem Relation Age of Onset Uterine Cancer Mother hysterectomy Heart Father [place] age 43, elevated cholesterol None Sister Cancer Maternal Grandmother ovarian cancer Cancer Maternal Grandfather Coronary Artery Disease Paternal Grandmother Diabetes Paternal Grandmother Cancer Paternal Grandfather Lung No Known Problems Daughter No Known Problems Daughter No Known Problems Daughter No Known Problems Son No Known Problems Son Patient Allergies ALLERGIES Allergen Reactions Lamictal [Lamotrigi* Other: See Comments Elevated blood pressure, sight and sound amplification, nausea, heroin craving Wellbutrin [Bupropi* Other: See Comments felt jittery and emotional, nausea Zoloft [Sertraline] Mental Status Change felt high like on cocaine; could not tolerate Current Medications Current Outpatient Medications on File Prior to Visit Medication Sig Magnesium 30 mg tablet Take 30 mg by mouth twice daily. Unsure of dose MULTIVITAMIN ORAL Take by mouth. BIOTIN ORAL Take by mouth. PNV no.95/ferrous fum/folic ac ( ORAL) Take by mouth. omega 2-fyg-bzw-fish oil (FISH OIL) 100-160-1,000 mg cap Take by mouth. ELDERBERRY FRUIT ORAL Take by mouth. loperamide (IMODIUM) 2 mg cap(s) Take 1 capsule by mouth twice daily with meals. (Patient taking differently: Take 2 mg by mouth twice daily with meals. prn) ibuprofen (MOTRIN) 600 mg tablet Take 600 mg by mouth every 6 hours as needed. Blood Pressure Monitor (BLOOD PRESSURE KIT) Home BP Kit Dx: transient BP elevations fluticasone (FLONASE) 50 mcg/actuation nasal spray Use 2 Sprays in each nostril once daily. Rinse mouth after use. loratadine (CLARITIN) 10 mg tablet Take 1 tablet by mouth once daily. For allergies cyanocobalamin (VITAMIN B-12) 1,000 mcg tab Take 1 tablet by mouth once daily. No current facility-administered medications on file prior to visit. Social History Social History Tobacco Use Smoking status: Former Years: 14 Types: Cigarettes Quit date: 07/09/2019 Years since quittin.7 Smokeless tobacco: Never Tobacco comments: Stopped smoking in June, vapes nicotine Vaping Use Vaping Use: Former Substance Use Topics Alcohol use: No Drug use: Yes Types: Marijuana Comment: heroine, cocaine - in remission; no current 09/2015 REVIEW OF SYSTEMS: as above Reviewed rele (more content not included)... [facility] Progress note 01-17-2023 Note Date & Type Note Facility 01-17-2023 Note HNO ID: [id number] Author: Reyna Lake APRN.[employer]IV[employer]IVERS SUPERVISOR Service: ? Author Type: Nurse Practitioner Type: Progress Notes Filed: 01/17/2023 11:34 AM Note Text: Subjective The history is provided by the patient. No timber setter was used. HPI Hien Nevarez is a 47 year old female who presents today for CC of sore throat, body aches an headache that started last night. She is also having nausea and diarrhea. She has used tylenol with short term relief. She denies any vomiting. She was exposed to strep. BP 110/68 Pulse 78 Temp 36.6 ?C (97.9 ?F) Resp 16 Wt 71.2 kg (157 lb) LMP 12/03/2022 (Exact Date) SpO2 97% BMI 25.34 kg/m? Social History Tobacco Use Smoking status: Former Years: 14 Types: Cigarettes Quit date: 07/09/2019 Years since quittin.5 Smokeless tobacco: Never Tobacco comments: Stopped smoking in June, vapes nicotine Vaping Use Vaping Use: Former Substance Use Topics Alcohol use: No Drug use: Yes Types: Marijuana Comment: heroine, cocaine - in remission; no current 09/2015 PAST MEDICAL HISTORY Diagnosis Date Allergic rhinitis, cause unspecified 12/15/2005 Attention deficit disorder Bilateral carpal tunnel syndrome Clostridioides difficile infection Diarrhea Generalized anxiety disorder Anxiety, Generalized H/O miscarriage, currently 4 Miscarriages Hemorrhage of rectum and anus Hepatitis C History of gestational hypertension 01/02/2017 History of maternal fourth degree perineal laceration, currently 01/02/2017 Migraine, unspecified, with intractable migraine, so stated, without mention of status migrainosus Migraine Nondependent alcohol abuse lives at [facility] Other, mixed, or unspecified nondependent drug abuse lives at [facility] PMH - PAST MEDICAL HISTORY OF heart mumur Ulcerative (chronic) proctitis (HCC) I have confirmed and edited as necessary, the [facility] Review of Systems Constitutional: Negative for chills, fever and malaise/fatigue. HENT: Positive for sore throat. Negative for congestion, ear pain and sinus pain. Respiratory: Negative for cough, sputum production, shortness of breath and wheezing. Cardiovascular: Negative for chest pain. Gastrointestinal: Positive for diarrhea and nausea. Negative for abdominal pain and vomiting. Musculoskeletal: Negative for myalgias. Neurological: Negative for headaches. Objective Physical Exam Vitals and nursing note reviewed. HENT: Head: Normocephalic and atraumatic. Right Ear: Tympanic membrane, ear canal and external ear normal. Left Ear: Tympanic membrane, ear canal and external ear normal. Nose: No mucosal edema, congestion or rhinorrhea. Right Sinus: No maxillary sinus tenderness or frontal sinus tenderness. Left Sinus: No maxillary sinus tenderness or frontal sinus tenderness. Mouth/Throat: Pharynx: Uvula midline. Posterior oropharyngeal erythema present. No oropharyngeal exudate. Cardiovascular: Rate and Rhythm: Normal rate and regular rhythm. Heart sounds: Normal heart sounds. Pulmonary: Effort: Pulmonary effort is normal. Breath sounds: Normal breath sounds. Lymphadenopathy: Head: Right side of head: No submental, submandibular or tonsillar adenopathy. Left side of head: No submental, submandibular or tonsillar adenopathy. Cervical: No cervical adenopathy. Skin: General: Skin is warm and dry. Neurological: Mental Status: She is alert. Psychiatric: Mood and Affect: Affect normal. ASSESSMENT/PLAN: 1. Strep throat - ICD9: 034.0, ICD10: J02.0 (primary diagnosis) - suspect strep - Group A strep molecular testing positive - Amoxicillin for 10 days. - Discussed supportive care treatment with fluids, rest and analgesia. - The patient may also use warm salt water gargles, throat lozenges and/or OTC throat spray as needed. - Contagious dz precautions discussed- including considered contagious until on antibiotics for 24 hours - The patient should follow up in one week if symptoms persist or worsen - Call back if drooling, increased temperature, symptoms of dehydration and/or still sick in one week 2. Sore throat - ICD9: 462, ICD10: J02.9 - STREP A MOLECULAR (POC) 3. Feared condition not demonstrated - ICD9: V65.5, ICD10: Z71.1 Fluconazole prescribed, no prolonged QT syndrome. Diagnosis and treatment plan were discussed and questions were answered to the patient's satisfaction. Pt acknowledged understanding of concepts and follow up plan. Specific signs and symptoms that would indicate the need for higher level of care were discussed in detail warranting prompt ER evaluation. Reyna Lake APRN.[facility] Progress note 12-27-2022 Note Date & Type Note Facility 12-27-2022 Note HNO ID: [id number] Author: Kasie Baig MD Service: ? Author Type: Physician Type: Progress Notes Filed: 12/27/2022 1:02 PM Note Text: Hien Nevarez is a 47 year old female who presents for vaginal pruritis and discharge for 2 week(s). Vaginal discharge: scant amount, watery, and yellow. Itching: YES Dyspareunia: No Fever/chills: No Abdominal pain: No Bladder: Negative for dysuria or frequency Bowel: No blood in stool, pain with BM, tarry stool, persistent diarrhea or constipation Any new sexual partners or concern for STD exposure: No Any history of STDs: trichomonas and this was treated last year Does your partner have any new complaints: No Are you currently taking any medications to treat vaginitis: No Do you use feminine sprays, douches or deodorants: No Menstrual cycle: cycles every 28-30 days Contraception: none Last pap: 2022, Normal with HPV other positive Past medical, surgical, social history, medications and allergies reviewed and updated. OBJECTIVE: BP 166/98 Ht 5' 6 (1.68m) Wt 159 lb (72.1kg) LMP 12/03/2022 BMI 25.68 kg/(m2). GENERAL: Well developed, well nourished in no apparent distress ABDOMEN: soft, non-tender, and no masses PELVIC: external genitalia normal, normal Bartholin's glands, urethra, Heidelberg's glands, no vulvar lesions, no cervical lesions, good vaginal support, physiologic discharge present, normal appearing perineal body and perianal region BIMANUAL: uterus normal size, shape and consistency, midposition, no adnexal masses, non-tender, and no cervical motion tenderness. RECTOVAGINAL: deferred. Wet prep/BRENDA: trichomonas: absent clue cells: absent hyphae: present ASSESSMENT/PLAN: Yarely vaginitis Office Visit on 12/27/22 WET PREP B/O GONORRHEA/CHLAMYDIA NAAT fluconazole (DIFLUCAN) 150 mg tablet STD screening: Accepted STD check for Gonorrhea and Chlamydia. Any new medications given to the patient have been explained as to directions, reasons for prescribing and side effects. Perineal hygiene and safe sex were discussed with the patient. ASSESSMENT/PLAN: 1. Vaginal leukorrhea - ICD9: 623.5, ICD10: N89.8 (primary diagnosis) - vulvar care reviewed. - WET PREP B/O - GONORRHEA/CHLAMYDIA NAAT 2. Yeast vaginitis - ICD9: 112.1, ICD10: B37.31 - FLUCONAZOLE 150 MG TABLET Kasie Baig MD [facility] Progress note 06-17-2022 Note Date & Type Note Facility 06-17-2022 Note HNO ID: [id number] Author: RT Dario(R) Service: ? Author Type: Technologist Type: Progress Notes Filed: 06/17/2022 10:54 AM Note Text: Radiology Service Progress Note PATIENT NAME: Hien Nevarez DATE OF SERVICE: June 17, 2022 TIME: 10:53 AM PATIENT IDENTITY VERIFICATION COMPLETED USING TWO (2) IDENTIFIERS: Name and Date of confirmed by patient verbally. FALL SCREENING: Has the patient had 2 falls in the last year or 1 fall with injury or currently using an Ambulatory Assistive Device (Walker, Cane, Wheelchair, Crutches, etc.)? No PATIENT GENDER DATA: Female. status: : No status: NO. PATIENT RELEVANT IMPLANT DATA REVIEWED: Not Applicable RADIOLOGY DEPARTMENT: Mammography PERIPHERAL IV DATA: Not applicable SIGNED BY: RT Dario(R) June 17, 2022 10:53 AM [facility] Progress note 06-17-2022 Note Date & Type Note Facility 06-17-2022 Note HNO ID: [id number] Author: Bree Joiner APRN.[employer] DELIV[employer]IVERS SUPERVISOR Service: ? Author Type: Nurse Practitioner Type: Progress Notes Filed: 06/17/2022 9:31 AM Note Text: Engraving Supervisor offered: Patient declines. Hien is a 46 year old who presents for an annual gynecologic exam without complaints. Menses: cycles every 28-30 days and 7 days of flow. Flow is patient care nursing assistant at times. Contraception: none, withdrawal HPV vaccine: no Last Pap: 10/10/2019 normal HPV: 10/10/2019 negative History of abnormal pap: Yes HPV + 2017 Last mammogram: 2020 normal Abnormal mammogram: no Sexually active: Yes History of STDS: chlamydia, HPV, and trichomonas Patient concerns for STD exposure: No. Time with current partner: 7 months Pain with intercourse: No Postcoital bleeding: No Documentation from previous visit of 04/08/2021 was copied and pasted, documentation has been reviewed and edited as necessary for today's visit. OB History T5 L6 SAB3 IAB0 Ectopic1 Multiple0 Live Births6 Link Assembler History LMP: 03/17/2022 (Exact Date), Having periods Age at Menarche: Age at First : Age at Menopause: Link Assembler History Comments: Sexual Activity: Not Currently; Male Contraception: No contraception data on record PAST MEDICAL HISTORY Diagnosis Date Allergic rhinitis, cause unspecified 12/15/2005 Attention deficit disorder Bilateral carpal tunnel syndrome Clostridioides difficile infection Diarrhea Generalized anxiety disorder Anxiety, Generalized H/O miscarriage, currently 4 Miscarriages Hemorrhage of rectum and anus Hepatitis C History of gestational hypertension 01/02/2017 History of maternal fourth degree perineal laceration, currently 01/02/2017 Migraine, unspecified, with intractable migraine, so stated, without mention of status migrainosus Migraine Nondependent alcohol abuse lives at [facility] Other, mixed, or unspecified nondependent drug abuse lives at [facility] PMH - PAST MEDICAL HISTORY OF heart mumur Ulcerative (chronic) proctitis (HCC) PAST SURGICAL HISTORY Procedure Laterality Date COLONOSCOPY aprox 2013 COLONOSCOPY 03/09/2020 ulcerative colitis, diverticulosis, internal hemorrhoids COLONOSCOPY W/BIOPSY SINGLE/MULTIPLE 11/06/2007 ulcerative proctitis INSERT INTRAUTERINE DEVICE 05/25/2007 Mirena REDUCTION OF LARGE BREAST Breast reduction TONSILLECTOMY PRIMARY/SECONDARY Tonsillectomy ULTRASOUND ELASTOGRAPHY FAMILY HISTORY Problem Relation Age of Onset Uterine Cancer Mother hysterectomy Heart Father [place] age 43, elevated cholesterol None Sister Cancer Maternal Grandmother ovarian cancer Cancer Maternal Grandfather Coronary Artery Disease Paternal Grandmother Diabetes Paternal Grandmother Cancer Paternal Grandfather Lung SOCIAL HISTORY Social History Tobacco Use Smoking status: Former Years: 14.00 Types: Cigarettes Quit date: 07/09/2019 Years since quittin.9 Smokeless tobacco: Never Tobacco comments: Stopped smoking in June, vapes nicotine Vaping Use Vaping Use: Some days Substance Use Topics Alcohol use: No Drug use: Yes Types: Marijuana Comment: heroine, cocaine - in remission; no current 09/2015 REVIEW OF SYSTEMS Abdomen: No abdominal pain, nausea, vomiting, diarrhea, or constipation. No bloating, early satiety, indigestion, or increased flatulence. Bladder: No dysuria, gross hematuria, urinary frequency, urinary urgency, or incontinence. Breast: No breast lumps, nipple d/c, overlying skin changes, redness or skin retraction. Allergies and current medication updated:Yes EXAM: BP 102/74 Ht 5' 6 (1.68m) Wt 151 lb (68.5kg) LMP 05/30/2022 BMI 24.38 kg/(m2). GENERAL: pleasant, female in no apparent distress HEENT: Normocephalic, atraumatic, mucus membranes moist, and no lesions NECK: Supple, full range of motion, no adenopathy, and thyroid normal DERMATOLOGY: Normal, without lesions, non-icteric, and non-hirsute BREAST: soft, non-tender, symmetric, no dominant mass, normal nipple-areolar complex, no lymphadenopathy, and no nipple discharge CHEST: Normal inspiratory effort ABDOMEN: soft, non-tender, and no masses PELVIC: external genitalia normal, normal Bartholin's glands, urethra, Heidelberg's glands, no vulvar lesions, no cervical lesions, physiologic discharge present, normal appearing perineal body and perianal region BIMANUAL: uterus normal size, shape and consistency, no adnexal masses, and non-tender RECTOVAGINAL: deferred. NEURO: alert and oriented x3,exam grossly non-focal EXTREMITIES: normal ASSESSMENT/PLAN: 1) Health maintenance: Pap done with HPV. Mammogram up to date . Nutrition, exercise and routine health maintenance exams reviewed. Calcium/Vitamin D supplementation information provided. 2) Contraception: none. Contraceptive options reviewed and information provided. Declines contraception and wants to cont (more content not included)... [facility] Progress note 06-10-2022 Note Date & Type Note Facility 06-10-2022 Note HNO ID: [id number] Author: Nickolas Stoll PA-C Service: ? Author Type: Physician Skylights Assembler Type: Progress Notes Filed: 06/10/2022 1:29 PM Note Text: NEW PATIENT Chief Complaint: Patient presents with: LESION, SKIN HPI: Hien Nevarez is a 46 year old female who presents today for: Patient presents with: LESION, SKIN #1 Location: Left chest Duration: months Symptoms: Scaly and red, tender to touch Current Treatment: Neosporin, OTC lotions Past Treatment: none Additional Comments: none Pertinent History: History of skin cancer or atypical nevi: No Family history of skin cancer: No Organ transplant or immunosuppression: No or : No Past Medical History is reviewed. Medication List is reviewed. ROS: Skin as above. Physical Exam: Vega skin type: I The patient is a pleasant female in no apparent distress. Alert and oriented x 3. A skin exam performed of the chest is significant for: Left Chest 0.6 x 0.6 cm keratotic pink papule R/O AK vs SCC Assessment and Plan: Neoplasm of unspecified behavior of bone, soft tissue, and skin Left Chest SKIN / NAIL BIOPSY Type of biopsy: tangential Informed consent: discussed and consent obtained Informed consent comment: Verbal consent obtained Timeout: patient name, date of , surgical site, and procedure verified Procedure prep: Patient was prepped and draped in usual sterile fashion Prep type: Isopropyl alcohol Anesthesia: the lesion was anesthetized in a standard fashion Anesthetic: 1% lidocaine w/ epinephrine 1-100,000 local infiltration Instrument used: DermaBlade Hemostasis achieved with: pressure and aluminum chloride Outcome: patient tolerated procedure well Post-procedure details: sterile dressing applied and wound care instructions given Dressing type: petrolatum and bandage Additional details: I discussed treatment options with the patient. The risks of bleeding, infection, scarring, damage to underlying structures and potential need for future procedures discussed. Alternatives including no treatment were discussed. The patient verbalized understanding and desires us to proceed. Specimen A - SURGICAL PATHOLOGY SKIN ONLY The nature of sun-induced photo-aging and skin cancers is discussed including the ABCDE's of melanoma. Sun avoidance, protective clothing, and the use of 30-SPF sunscreens is advised. Patient is instructed to perform regular self exams. Observe for changing, symptomatic, or new skin lesions and return to dermatology if any lesions of concern are noted. Follow up as noted in plan or as needed. Intake: Melissa Yadav LPN I have reviewed and agree with the Chief Complaint, ROS, and Past Histories independently gathered by the clinical work station support specialist and the remaining scribed note accurately describes my personal service to the patient. Nickolas Stoll MS, PA-C Procedure: shave Informed Consent Consent Obtained: Verbal Walker Protocol A moment to CARE was completed SIGN IN Personnel directly involved with the procedure wore the appropriate PPE Special Equipment: N/A Patient/Surrogate Stated/Verified: Patient name, Date of , Relevant allergies and Intended procedure TIME OUT Intended patient and procedure match the source document(s) Correct side/site marked and visible. Medications required for procedure verified. Fire risk assessed and interventions discussed. SIGN OUT All specimen containers correctly labeled. All instruments, equipment, possible retained foreign bodies accounted for. Post-procedure follow-up management communicated and Plan of Care Visit completed when applicable [facility] Clinical Note 05-25-2022 Note Date & Type Note Facility 05-25-2022 Note Patient Outreach (IN [facility]) HIEN NEVAREZ ([id number]) 1975 F Date Time Provider Department 05/25/22 FRANCO VALDES During your visit today, we recorded the following information about you: Allergies As of Date: 05/25/2022 Noted Allergy Reaction LAMICTAL (LAMOTRIGINE) 04/08/2021 14 - Other: See Comments Comments: Elevated blood pressure, sight and sound amplification, nausea, heroin craving WELLBUTRIN (BUPROPION) 10/01/2020 14 - Other: See Comments Comments: felt jittery and emotional, nausea ZOLOFT (SERTRALINE) 02/14/2018 1 - Mental Status Change Comments: felt high like on cocaine; could not tolerate Date Reviewed: 04/27/2022 Reviewed by: Rabia Shabazz Ma - Fully Assessed Visit Diagnosis:Encounter for screening mammogram for breast cancer [Z12.31] Order(s):[facility] SCREENING [[id number]] Order #: [id number] FUTURE Prescriptions as of 05/30/2022 - fluconazole (DIFLUCAN) 150 mg tablet Take 1 tablet by mouth as directed. Take one tablet today and second tablet after the last dose of your antibiotic. - Magnesium 30 mg tablet Take 30 mg by mouth twice daily. Unsure of dose - MULTIVITAMIN ORAL Take by mouth. - BIOTIN ORAL Take by mouth. - PNV no.95/ferrous fum/folic ac ( ORAL) Take by mouth. - omega 2-wxh-ijv-fish oil (FISH OIL) 100-160-1,000 mg cap Take by mouth. - ELDERBERRY FRUIT ORAL Take by mouth. - loperamide (IMODIUM) 2 mg cap(s) Take 1 capsule by mouth twice daily with meals. - ibuprofen (MOTRIN) 600 mg tablet Take 600 mg by mouth every 6 hours as needed. - Blood Pressure Monitor (BLOOD PRESSURE KIT) Home BP Kit Dx: transient BP elevations - fluticasone (FLONASE) 50 mcg/actuation nasal spray Use 2 Sprays in each nostril once daily. Rinse mouth after use. - loratadine (CLARITIN) 10 mg tablet Take 1 tablet by mouth once daily. For allergies - cyanocobalamin (VITAMIN B-12) 1,000 mcg tab Take 1 tablet by mouth once daily. Meds Comments as of 10/22/2007: All medications have been reviewed todayApril 14, 2007 Lulú Askew LPN All medications have been reviewed today/May 25, 2007 Lulú Askew Lpn All medications have been reviewed today/April 20, 2007 uLlú Askew Lpn All medications reviewed today/October 22, 2007 Lulú Askew Lpn Problem List As Of Date 05/25/2022 Noted Resolved Opioid abuse, in remission [F11.11] 05/19/2005 08/11/2017 Rash and other nonspecific skin eruption [R21] 12/15/2005 01/02/2017 Allergic rhinitis, cause unspecified [J30.9] 12/15/2005 10/08/2019 BACKACHE NOS [M54.9] 01/16/2006 Sebaceous cyst [L72.3] 02/24/2006 01/02/2017 SUPERVIS OTHER NORMAL PREG [Z34.80] 07/03/2006 03/02/2007 Hemorrhage of rectum and anus [K62.5] 01/02/2017 TRANS HYPERTEN-ANTEPART [O13.9] 02/05/2007 04/16/2007 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] 04/16/2007 Ulcerative (chronic) proctitis (HCC) [K51.20] 11/06/2007 01/02/2017 Hemorrhage of gastrointestinal tract, unspecifi*11/06/2007 01/02/2017 DIARRHEA NOS [R19.7] 11/06/2007 Hypertrophy of breast [N62] 12/11/2007 01/02/2017 Chronic hepatitis C without hepatic coma (HCC) *10/16/2015 Drug addiction (HCC) [F19.20] 10/16/2015 01/02/2017 Elderly multigravida in first trimester [O09.52*01/02/2017 10/08/2019 History of maternal fourth degree perineal lace*01/02/2017 08/11/2017 History of gestational hypertension [Z87.59] 01/02/2017 08/11/2017 Down syndrome of fetus in current [O3*02/03/2017 08/11/2017 Chronic hepatitis C affecting , antepa*02/03/2017 04/17/2018 BV (bacterial vaginosis) [N76.0, B96.89] 03/22/2017 08/11/2017 Polyhydramnios in third trimester [O40.3XX0] 05/16/2017 08/11/2017 Encounter for sterilization [Z30.2] 06/16/2017 10/08/2019 Attention deficit hyperactivity disorder (ADHD)*02/14/2018 H/O miscarriage, currently [O09.299] 10/08/2019 Ulcerative colitis with rectal bleeding (HCC) [*08/27/2020 Essential hypertension [I10] 08/27/2020 Other spondylosis with radiculopathy, lumbar re*07/08/2021 Encounter Status:Closed by EPIC, PRODUSER on 05/30/22 [facility] Progress note 12-07-2022 Note Date & Type Note Facility 04-27-2022 Note HNO ID: [id number] Author: Bea Patel APRN.[employer] Service: ? Author Type: Nurse Practitioner Type: Progress Notes Filed: 04/27/2022 12:23 PM Note Text: CC: Patient presents with: Hair Loss: Hair loss HPI Hien Nevarez is a 46 year old female established patient of Dr Valdes who presents today for hair loss and multiple concerns. Had COVID in december and has had generalized hair loss, change in her menstruation, and fatigue since this has occurred. Menstruation used to be very irregular but now is not. Denies fever, chills, abnormal weight changes, chest pain, shortness of breath, abnormal vaginal drainage, or change in diet. Is a vegetarian. Dry area to left side of chest that has been there for months. Scratched at it a few months ago and it bled but oven drier tender to touch and not gotten better. Denies it changing in size, color, and does not bleed anymore as long as she does not pick at it. Has had pain to right flank for the past week that radiates to the front that is sharp in nature. Does have history of kidney stones this past year she has not passed but does not feel it is pain like that. Feels like the area is swollen. Denies any injury, abdominal pain, pain urinating, decreased urination or blood in urine. REVIEW OF SYSTEMS General: no fevers, no chills, no night sweats, no recurrent infections, no change in appetite, and no significant changes in weight Head: No patches of hair loss or thinning of hair noted. Respiratory: no cough, no wheezing, no shortness of breath, no hemoptysis Cardiovascular: no chest pain, no chest pressure, no palpitations, and no swelling GI: No nausea, vomiting, or diarrhea Skin: See HPI Neurologic: No headache, weakness, numbness, tingling, dizziness, memory loss, syncope. PAST MEDICAL HISTORY Diagnosis Date Allergic rhinitis, cause unspecified 12/15/2005 Attention deficit disorder Bilateral carpal tunnel syndrome Clostridioides difficile infection Diarrhea Generalized anxiety disorder Anxiety, Generalized H/O miscarriage, currently 4 Miscarriages Hemorrhage of rectum and anus Hepatitis C History of gestational hypertension 01/02/2017 History of maternal fourth degree perineal laceration, currently 01/02/2017 Migraine, unspecified, with intractable migraine, so stated, without mention of status migrainosus Migraine Nondependent alcohol abuse lives at [facility] Other, mixed, or unspecified nondependent drug abuse lives at [facility] PMH - PAST MEDICAL HISTORY OF heart mumur Ulcerative (chronic) proctitis (HCC) PAST SURGICAL HISTORY Procedure Laterality Date COLONOSCOPY aprox 2013 COLONOSCOPY 03/09/2020 ulcerative colitis, diverticulosis, internal hemorrhoids COLONOSCOPY W/BIOPSY SINGLE/MULTIPLE 11/06/2007 ulcerative proctitis INSERT INTRAUTERINE DEVICE 05/25/2007 Mirena REDUCTION OF LARGE BREAST Breast reduction TONSILLECTOMY PRIMARY/SECONDARY Tonsillectomy ULTRASOUND ELASTOGRAPHY ALLERGIES Lamictal [Lamotrigine], Wellbutrin [Bupropion], and Zoloft [Sertraline] MEDICATIONS fluconazole (DIFLUCAN) 150 mg tablet Take 1 tablet by mouth as directed. Take one tablet today and second tablet after the last dose of your antibiotic. Magnesium 30 mg tablet Take 30 mg by mouth twice daily. Unsure of dose MULTIVITAMIN ORAL Take by mouth. BIOTIN ORAL Take by mouth. PNV no.95/ferrous fum/folic ac ( ORAL) Take by mouth. (Patient not taking: Reported on 04/08/2021 ) omega 0-vty-edc-fish oil (FISH OIL) 100-160-1,000 mg cap Take by mouth. ELDERBERRY FRUIT ORAL Take by mouth. loperamide (IMODIUM) 2 mg cap(s) Take 1 capsule by mouth twice daily with meals. (Patient taking differently: Take 2 mg by mouth twice daily with meals. prn) ibuprofen (MOTRIN) 600 mg tablet Take 600 mg by mouth every 6 hours as needed. Blood Pressure Monitor (BLOOD PRESSURE KIT) Home BP Kit Dx: transient BP elevations fluticasone (FLONASE) 50 mcg/actuation nasal spray Use 2 Sprays in each nostril once daily. Rinse mouth after use. loratadine (CLARITIN) 10 mg tablet Take 1 tablet by mouth once daily. For allergies cyanocobalamin (VITAMIN B-12) 1,000 mcg tab Take 1 tablet by mouth once daily. FAMILY HISTORY Problem Relation Age of Onset Uterine Cancer Mother hysterectomy Heart Father [place] age 43, elevated cholesterol None Sister Cancer Maternal Grandmother ovarian cancer Cancer Maternal Grandfather Coronary Artery Disease Paternal Grandmother Diabetes Paternal Grandmother Cancer Paternal Grandfather Lung Social History Tobacco Use Smoking status: Former Years: 14.00 Types: Cigarettes Quit date: 07/09/2019 Years since quittin.8 Smokeless tobacco: Never Tobacco comments: Stopped smoking in June, vapes nicotine Vaping Use Vaping Use: Some days Substance Use Topics Alcohol use: No Drug use: Yes Types: Marijuana Comment: heroi (more content not included)... [facility] Progress note 04-11-2022 Note Date & Type Note Facility 04-11-2022 Note HNO ID: [id number] Author: Migdalia Mueller APRN.CNP Service: ? Author Type: Nurse Practitioner Type: Progress Notes Filed: 04/11/2022 11:14 AM Note Text: Hien Nevarez is a 46 year old female who presents for vaginal pruritis, burning, and discharge for 2 week(s). Pt was treated for BV and Trich on 04/02/22, but her partner was not treated and they had sex the day after she finished treatment. He is getting tested today. Vaginal discharge: large amount, thick, and white. Itching: YES Dyspareunia: No Fever/chills: No Abdominal pain: No Bladder: Negative for dysuria or frequency Bowel: No blood in stool, pain with BM, tarry stool, persistent diarrhea or constipation Past medical, surgical, social history, medications and allergies reviewed and updated. OBJECTIVE: Wt 153 lb 9.6 oz (69.7kg) LMP 03/17/2022 GENERAL: Well developed, well nourished in no apparent distress PELVIC: external genitalia normal, normal Bartholin's glands, urethra, Heidelberg's glands, no vulvar lesions, no cervical lesions, physiologic discharge present, normal appearing perineal body and perianal region ASSESSMENT/PLAN: 1. Vaginal discharge - ICD9: 623.5, ICD10: N89.8 - Flagyl order - YARELY / TRICHOMONAS AMPLIFICATION - BACTERIAL VAGINOSIS AMPLIFICATION - Instructed pt NO intercourse until her and her partner of completed treatment. Migdalia Mueller APRN.CNP Medical Decision Making: Problems: Low: Acute, uncomplicated illness or injury Data: Unique test(s) ordered: 1 Risk: Low: Low risk from testing/treatment Moderate: Drug management Medical Decision Making Level: 3 - Low [facility] Summary Purpose Family History No Family History Records FoundNo Family History Records FoundNo Family History Records FoundNo Family History Records Found Advance Directives No Advanced Directives Records FoundNo Advanced Directives Records FoundNo Advanced Directives Records FoundNo Advanced Directives Records Found Additional Source Comments INFORMATION SOURCE (unrecogn ized section and content) DATE CREATED AUTHOR AUTHOR'S ORGANIZ ATION 05/13/2020 [facility] DATE CREATED AUTHOR AUTHOR'S ORGANIZ ATION 05/28/2020 [facility] DATE CREATED AUTHOR AUTHOR'S ORGANIZ ATION 04/01/2023 [facility] FOR RECORDS PERTAINING TO PATIENTS WHO ARE OR HAVE BEEN ENROLLED IN A CHEMICAL DEPENDENCY/SUBSTANCEABUSE PROGRAM, SOME INFORMATION MAY BE OMITTED. This clinical summary was aggregated from multiple sources. Caution should be exercised in using it in the provision of clinical care. This summary normalizes information from multiple sources, and as a consequence, information in this document may materially change the coding, format and clinical context of patient data. In addition, data may be omitted in some cases. CLINICAL DECISIONS SHOULD BE BASED ON THE PRIMARY CLINICAL RECORDS. [employer] provides no warranty or guarantee of the accuracy or completeness of information in this document.
[2023-05-18 20:22] VITALS: BP 130/70; PULSE 74; RESP 16; O2SAT 98
[2023-05-18] MEDS: Naproxen 250 MG Tablet 500 MG PO (20:23)
[2023-05-18 20:25] VITALS: BP 130/70; PULSE 74; RESP 16; O2SAT 98
== END 2023-05-18 20:26 | disposition home or self-care (01) ==
PROVIDERS: Emergency Provider Emergency Medicine; PCP Internal Medicine; Referring Provider Emergency Medicine; Visit Provider Emergency Medicine
DX: S50.02XA Contusion of left elbow, initial encounter (principal); F17.200 Nicotine dependence, unspecified, uncomplicated; W01.0XXA Fall on same level from slipping, tripping and stumbling without subsequent striking against object, initial encounter; Y92.511 Restaurant or cafe as the place of occurrence of the external cause
CPT/HCPCS: 73080; 99282

== ENCOUNTER 2024-02-12 10:22 | Emergency (ER) | payer MEDICAID, SELFPAY ==
[2024-02-12 10:24] VITALS: BP 181/99; PULSE 78; RESP 18; TEMP 36.5; O2SAT 100; BMI 23.7
[2024-02-12 14:23] VITALS: BP 180/90; PULSE 73; RESP 18; O2SAT 99
--- NOTE | 2024-02-12 14:30 | RAD_ITS ---
STUDY: X-RAY - RIGHT FOOT CLINICAL: Female, 48 years old. Posterior heel trauma TECHNIQUE: 3 view(s) of the foot. COMPARISON: None. FINDINGS: There is a plantar calcaneal spur. Normal visualized subtalar, talonavicular, calcaneocuboid, tarsal and tarsometatarsal articulations. Normal metatarsi. Normal metatarsophalangeal joint of the great toe. Normal tibial and fibular sesamoid bones. Normal interphalangeal joint of the great toe. Normal phalanges of the great toe. Normal second through fifth metatarsophalangeal joints. Normal interphalangeal joints and phalanges of the lesser toes. Soft tissue swelling overlying the posterior calcaneus. RAD/Foot min 3 Views IMPRESSION: Small plantar spur. Soft tissue swelling overlying the posterior calcaneus. Electronically Signed: Brett Brerios MD at 14:44 EDT ,
--- NOTE | 2024-02-12 14:39 | EDS_ITS ---
HPI History of Present Illness Chief Complaint: Trauma Informant: patient Narrative Narrative: 48-year-old female presenting to the emergency room right foot injury and back pain. Patient states that yesterday she was struck in the posterior right foot by a metal door that was pushed closed yesterday. She states this is resulted in bruising near her Achilles and her heel. She states that she has been walking her toes which is now caused her low back to start hurting. States she has some scoliotic issues with her back and the back was not hurting from the actual door being closed. PFSH PFSH Medical History Kidney stones Hepatitis Former smoker Home Medications ?Medication ?Instructions ?Recorded ?Last Taken ?Type NK 08/28/20 Unknown History dextroamphetamine-amphetamine 15 15 mg PO BID 08/28/20 Unknown History mg tablet cyclobenzaprine 10 mg tablet 10 mg PO TID PRN Muscle Spasm #15 02/12/24 Unknown Rx TABLETS ibuprofen 600 mg tablet 600 mg PO Q6H PRN PRN pain #20 02/12/24 Unknown Rx TABLETS Allergy/AdvReac Type Severity Reaction Status Date / Time sertraline (From Zoloft) AdvReac Intermediate anxiety Verified 02/12/24 10:24 Surgical History Hx of breast reduction, elective Hx of tonsillectomy Social History Smoking Status: Current every day smoker tobacco type: cigarettes ROS ROS ED Constitutional Constitutional ED: Denies chills, fever(s) or weight loss Eyes Eyes: Denies change in vision or diplopia ENT ENT ED: Denies ear pain, rhinorrhea or sore throat Cardiovascular Cardiovascular: Denies chest pain, orthopnea, palpitations or racing heartbeat Respiratory/Chest Respiratory/Chest: Denies cough, dyspnea or orthopnea Gastrointestinal Gastrointestinal: Denies abdominal pain, diarrhea, nausea or vomiting Genitourinary Genitourinary ED: Denies dysuria, hematuria or urinary frequency Musculoskeletal Musculoskeletal: Reports back pain and other Details: Right foot pain and contusion ; Denies arthralgias or myalgias Integumentary Denies abscess or rash Neurologic Neurologic: Denies headache(s) or weakness Psychiatric Psychiatric: Denies anxiety, depression, suicidal ideation or suicidal thoughts Endocrine Endocrinology: Denies polydipsia, polyphagia or polyuria Allergic/Immunologic Allergic/Immunologic ED: Denies mouth swelling, tongue swelling or urticaria EXAM Physical Exam Const Vital Signs: 02/12/24 10:24 02/12/24 14:10 02/12/24 14:23 Temperature 97.7 F L Temperature Source Oral Pulse Rate 78 73 Respiratory Rate 18 18 Respiratory Effort Normal Non-Labored Respiratory Depth Normal Respiratory Pattern Normal Blood Pressure 181/99 H 180/90 H Blood Pressure Mean 126 120 Pulse Ox 100 99 Oxygen Delivery Method Room Air Room Air Room Air Positive well nourished and well developed General Appearance ED: well developed and NAD HEENT Reports normocephalic, head/scalp atraumatic and moist mucous membranes Eyes PERRL and EOMs intact bilaterally Neck no lymphadenopathy, supple and no JVD Resp normal respiratory effort and clear to auscultation bilaterally Cardio regular rate, regular rhythm and no murmurs GI normal to inspection, nondistended, normoactive bowel sounds and non-tender Palpation: soft Back/Spine no CVA tenderness Back/Spine Narrative: Patient has tenderness palpation over the right lower lumbar paraspinal musculature. She appears neurovascularly intact from the lower extremity standpoint. There does not appear to be any skin changes to suggest underlying infection. Extremity Extremity Narrative: Patient has contusion and some mild swelling along the inferior most aspect of the right Achilles onto the heel. The Achilles palpates and functionally is intact. The rest of the ankle joint appears normal. Calf is nontender. General Extremety ED: Negative for edema General Extremity: Negative for edema Neuro oriented x3 and CN's II-XII intact bilaterally Sensorium / Orientation: alert Motor Exam: strength 5/5 throughout Psych mental status grossly normal Mood & Affect: Negative for depressed or tearful Skin no rashes or lesions noted and no wounds MDM MDM MDM Narrative Medical decision making narrative: Differential diagnosis includes lumbar muscle sprain strain spasm foot fracture ankle fracture tendon rupture ligamentous injury hematoma/contusion My independent interpretation of the plain films of the right foot is no acute fracture heel spur noted. I think the low back pain is secondary to compensation while walking. This can be treated with anti-inflammatories and muscle relaxants as well as heat. I will place the patient in Lewis wrap have her use crutches as needed. 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 Return if worse History & Record Review Discussion w/independent historian: Patient Radiography Diagnostic Testing: Clinical Impression(s) from Imaging Studies Foot X-Ray 02/12/24 14:30 IMPRESSION: Small plantar spur. Soft tissue swelling overlying the posterior calcaneus. Electronically Signed: Brett Berrios MD at 14:44 EDT , Discharge Plan Triage Chief Complaint: Trauma ED Provider: Michi Gonzales Dx/Rx/DC Orders Clinical Impression: Contusion of heel, Strain of lumbar paraspinal muscle Instructions: ED Back Sprain/Strain, ED Contusion, Lower Extremity Prescriptions: New cyclobenzaprine 10 mg tablet 10 mg PO TID PRN (Reason: Muscle Spasm) Qty: 15 0RF ibuprofen 600 mg tablet 600 mg PO Q6H PRN PRN (Reason: pain) Qty: 20 0RF No Action dextroamphetamine-amphetamine 15 MG tablet 15 mg PO BID NK Primary Care Provider: Griselda Valdes Referrals: Jared Sorensen DPM [Med Staff - Courtesy Staff] - 1-2 Weeks Griselda Valdes MD [Primary Care Provider] - Print Language: Romanian Disposition Disposition: Home, Self Care
[2024-02-12 15:49] VITALS: BP 164/88; PULSE 77; RESP 16; TEMP 36.7; O2SAT 99
== END 2024-02-12 15:51 | disposition home or self-care (01) ==
PROVIDERS: Emergency Provider Emergency Medicine; PCP Internal Medicine; Visit Provider Emergency Medicine
DX: S90.31XA Contusion of right foot, initial encounter (principal); S39.012A Strain of muscle, fascia and tendon of lower back, initial encounter; F17.210 Nicotine dependence, cigarettes, uncomplicated; W22.09XA Striking against other stationary object, initial encounter
CPT/HCPCS: 73630; 99283

== ENCOUNTER → 2024-02-22 | Outpatient (CLI) | payer MEDICAID, SELFPAY ==
[2024-02-22 18:01] LABS: Absolute Lymphocyte Count 1.71 X10^3/uL (0.83-4.51); Absolute Neutrophil Count 3.5 X10^3/uL (2.0-7.7); Basophil# 0.02 X10^3/uL; Basophil% 0.4 % (0-1); Eosinophil# 0.07 X10^3/uL; Eosinophils% 1.2 % (0-5); Hematocrit 36.6 % (37-47); Lymphocyte # 1.71 X10^3/ul (0.83-4.51); Lymphocyte % 30.1 % (19-41); Mean Corp Hgb Conc 32.8 g/dL (32-36); Mean Corpuscular Hgb 29.6 pg (27.0-32.0); Mean Corpuscular Volume 90.1 fL (81-99); Mean Platelet Vol. 9.8 fl (6.2-12.0); Monocyte# 0.35 X10^3/uL; Monocyte% 6.2 % (0-10); NRBC Flagged by Analyzer 0 % (0-5); Neutrophil # 3.52 X10^3/uL (2.7-7.7); Neutrophil % 61.9 % (47-70); Platelet Count 189 K/mm3 (150-450); RBC Distribution Width CV 12.5 % (11.6-14.6); RBC Distribution Width SD 41.1 fl (35.1-43.9); Red Blood Count 4.06 M/mm3 (4.2-5.4); White Blood Count 5.7 K/mm3 (4.4-11.0)
[2024-02-22 18:27] LABS: Vitamin D,25 Hydroxy 31.3 ng/mL
[2024-02-22 18:42] LABS: ALB/GLOB Ratio 1.3 RATIO (0.9-2.4); AST(SGOT) 15 U/L (15-37); Alanine Aminotransfer ALT/SGPT 18 U/L (13-56); Albumin, Serum 4.1 g/dL (3.2-5.0); Alkaline Phosphatase 47 U/L (45-117); Anion Gap 6 (5-15); BUN 12 mg/dL (7-18); BUN/Creat Ratio 17.1 RATIO (10-20); Calcium,Total 8.9 mg/dL (8.5-10.1); Chloride 108 mmol/L (98-107); EST Glomerular Filtration Rate 95 mL/min (>60); Est Glom Filt Rate - Afr Amer 115 mL/min (>60); Ferritin 14 ng/mL (8-252); Free T3 2.4 pg/mL (2.18-3.98); Globulin 3.2 g/dL (2.2-4.2); Glucose 86 mg/dL (74-106); Potassium 3.8 mmol/L (3.5-5.1); Protein, Total 7.3 g/dL (6.4-8.2); Sodium Level 137 mmol/L (136-145); T4 Free Direct 0.83 ng/dL (0.76-1.46)
[2024-02-26 15:08] LABS: Anti-Nuclear Antibody Test Negative (.)
[2024-02-27 16:11] LABS: Thyroid Peroxidase AB < 9 IU/mL (0-34); Zinc, Plasma or Serum 62 ug/dL (44-115)
== END | disposition home or self-care (01) ==
LOC: MTLAB 13:58
PROVIDERS: PCP Internal Medicine; Referring Provider Physician Assistant; Visit Provider Physician Assistant
DX: L65.9 Nonscarring hair loss, unspecified (principal); L21.8 Other seborrheic dermatitis; L81.0 Postinflammatory hyperpigmentation
CPT/HCPCS: 36415; 80053; 82306; 82728; 84439; 84443; 84481; 84630; 85025; 86038; 86376